=== PATIENT | male | born 1960 | race Caucasian/White ===

== ENCOUNTER 2020-05-31 15:39 | Emergency (ER) | payer OTHER, BC, SELFPAY ==
[2020-05-31 15:49] VITALS: BP 140/76; PULSE 88; RESP 20; TEMP 36.6; O2SAT 100
--- NOTE | 2020-05-31 16:35 | ED.WOUNDLAC ---
HPI - Wound/Laceration General Chief Complaint: Wound/Laceration Stated Complaint: r thumb lac Time Seen by Provider: 05/31/20 16:00 Source: patient and RN notes reviewed Mode of arrival: ambulatory Limitations: no limitations History of Present Illness HPI narrative: 59-year-old male who presents to [facility] care with complaints of injury to right thumb regalado aspect in the thenar region within the past 30 minutes prior to arrival Patient has 2 cm laceration caused by handling of fillet knife. No acute bleeding noted, controlled with pressure, tetanus is up-to-date patient states within last 6 years.Patient has good circulation to the right fingers with brisk capillary refill. Onset (ago): hour(s) (11/19-) Location: other (right hand) Extremity Location: Right: hand Place: work Patient tetanus UTD: Yes Context: accidental Associated symptoms: none Treatments prior to arrival: bandage Related Data Home Medications Medication Instructions Recorded Confirmed aspirin 81 mg tablet,delayed 81 mg PO DAILY 01/07/20 05/31/20 release Allergies Allergy/AdvReac Type Severity Reaction Status Date / Time No Known Allergies Allergy Verified 05/31/20 15:52 Review of Systems Review of Systems: Narrative: CONSTITUTIONAL: Denies fever, chills, or sweats. EYES: Denies visual changes, redness, or discharge. ENT: Denies rhinorrhea, congestion, sore throat, or otalgia. CARDIOVASCULAR: Denies chest pain, palpitations, or edema. RESPIRATORY: Denies cough or dyspnea. GASTROINTESTINAL: Denies abdominal pain, nausea, vomiting, or diarrhea. GENITOURINARY: Denies dysuria or hematuria. SKIN: Denies rash or itching.2cm laceration to the regalado aspect of right hand in thenar region MUSCULOSKELETAL: Denies back pain, joint pain, or myalgia. NEUROLOGIC: Denies headache, numbness, or weakness. PSYCHIATRIC: Denies anxiety or depression. All systems reviewed & are unremarkable except as noted in HPI and below PMFSH Past Medical History Medical History (Updated 06/01/20 @ 17:09 by Chary Pat NP) Alcohol abuse Anxiety and depression Gout Hypertension Surgical History Surgical History (Updated 06/01/20 @ 17:00 by Chary Pat NP) S/P right rotator cuff repair Family History Family History Sibling Family history of migraine headaches Family history of atrial fibrillation Mother Hypertension Social History Social History Smoking status: Never smoker Alcohol intake: current Living arrangements: with family Gender identity (if verbalized by the patient): Male Comments At time of signature, agree with nursing past medical, surgical, social and family history. There is no relevant family history pertinent to the presenting complaint Exam Narrative: Exam Narrative: GENERAL: Well-appearing, well-nourished, and in no acute distress. HEAD: Normocephalic, atraumatic. EYES: PERRLA and EOMI. ENT: Nares clear, no rhinorrhea or epistaxis. Mucous membranes moist. NECK: Supple.no lymphadenopathy CHEST: Clear to auscultation. No respiratory distress. HEART: Regular rate and rhythm. No murmur heard. Normal peripheral pulses. ABDOMEN: Soft, nontender, nondistended, normal active bowel sounds. EXTREMITIES: Normal range of motion. No edema. SKIN: Warm, dry, no rash. 2cm laceration to the right regalado thenar region from injury, no acute bleeding, CSM intact to right hand NEURO: No focal deficits. Alert and oriented x3. Course Vital Signs Vital signs: Vital Signs Temperature 36.6 C 05/31/20 15:49 Pulse Rate 88 05/31/20 15:49 Respiratory Rate 05/31/20 15:49 Blood Pressure 140/76 05/31/20 15:49 Pulse Oximetry 100 05/31/20 15:49 Temperature 36.6 C 05/31/20 15:49 Pulse Rate 88 05/31/20 15:49 Respiratory Rate 05/31/20 15:49 Blood Pressure 140/76 05/31/20 15:49 Pulse Oximetry
== END 2020-05-31 16:48 | disposition home or self-care (01) ==
PROVIDERS: Emergency Provider Registered Nurse; PCP Family Medicine
DX: S61.411A Laceration without foreign body of right hand, initial encounter (principal); W26.0XXA Contact with knife, initial encounter; F41.9 Anxiety disorder, unspecified; F32.9 Major depressive disorder, single episode, unspecified; I10 Essential (primary) hypertension; M10.9 Gout, unspecified; Z79.82 Long term (current) use of aspirin
CPT/HCPCS: 12001; 99213; G0463

== ENCOUNTER 2024-09-21 15:48 | Observation (INO) | payer BC, SELFPAY ==
[2024-09-21] VITALS (24 sets, daily range): BP systolic 99–118; BP diastolic 57–90; PULSE 96–165; RESP 13–21; TEMP 36.3; O2SAT 94–100
--- NOTE | ~2024-09-21 | XR_ITS ---
EXAMINATION: XR chest 1V portable DATE: 09/21/2024 16:34 INDICATION: Shortness of breath. TECHNIQUE: A single frontal view of the chest was obtained. COMPARISON: None. FINDINGS: There is no pneumonia, pleural effusion, or pneumothorax. The heart size is normal. IMPRESSION: 1. No acute cardiopulmonary disease. Reviewed, dictated and finalized at location A. [facility]
--- NOTE | 2024-09-21 15:53 | ECG_ITS ---
Test Date: 2024-09-21 15:57:32 Measurements Intervals [place] Rate: 173 P: 0 PA: 0 QRS: 9 QRSD: 73 T: 93 QT: 237 QTc: 403 Interpretive Statements ATRIAL FIBRILLATION WITH RAPID VENTRICULAR RESPONSE CONSIDER INFERIOR INFARCT, AGE INDETERMINATE BORDERLINE ST-T WAVE ABNORMALITY- LAT/HIGH LAT LEADS BASELINE ARTIFACT- I, II, AVR, AVL, AVF ABNORMAL ECG No previous ECG available for comparison Electronically Signed On 09-21-2024 16:05:10 [employer]LECT[employer]ICAL INSPECTOR by Tacos Nguyen D.O.
--- NOTE | 2024-09-21 15:54 | ED_ITS ---
HPI - SOB/Dyspnea General Chief Complaint: Arrhythmia/Palpitations Stated Complaint: sent by PMD for Afib Time Seen by Provider: 09/21/24 15:50 Focused HPI: Patient is a 64 y/o male who presents to the ED with c/o SOB. Patient reports having increased shortness breath over the last few weeks. Worse with exertion and lying flat. He has had intermittent dry cough and postnasal drip. He went to his primary care doctor today and was found to be tachycardic and irregular on auscultation. He was then sent to the ED for further evaluation. Patient does not have any previous Hx of AFIB. Denies hx of COPD/CHF. patient denies any chest pain. He notes he has had intermittent swelling in his BLE which he had attributed to gout. Has been on Furosemide for past 1 month, which did improve the swelling. GENERAL: Well-appearing, well-nourished, and in no acute distress. HEAD: Normocephalic, atraumatic. CHEST: Clear to auscultation. ?No respiratory distress. HEART: Tachycardic with irregular rhythm. Peripheral pulses intact. NEURO: ?Alert and oriented x3. Patient screened in triage and initial orders placed.? ?Additional care and disposition to be based upon?diagnostic testing and treatment. Source: patient Mode of arrival: ambulatory Limitations: no limitations Related Data Home Medications Medication Instructions Recorded Confirmed allopurinol 300 mg tablet 300 mg PO DAILY 09/21/24 09/21/24 amlodipine 5 mg-olmesartan 40 mg 1 tablet PO DAILY 09/21/24 09/21/24 tablet furosemide 20 mg tablet 20 mg PO DAILY 09/21/24 09/21/24 Allergies Allergy/AdvReac Type Severity Reaction Status Date / Time No Known Allergies Allergy Verified 09/21/24 22:18 [facility] Family History Family History (Updated 09/21/24 @ 22:06 by Nisreen Armando RN) Father Lung cancer Mother Kidney disease Sibling Heart problem Social History Social History Smoking status: Never smoker Alcohol intake: current Drinks per week: 12 Substance use type: does not use Do You Feel Safe in your Home?: Yes Lack of Transportation: No Lack of Food: Never True Current Housing: I Have Housing Concerned About Future Housing: No Difficulty Paying Gas/Electric Bills: No Difficulty Paying for Meds: No Currently Unemployed: No Education: High School Diploma/GED Difficulty w/ Childcare or Family Care: No Spiritual care concerns: No Course Vital Signs Vital signs: Vital Signs Temperature 97.3 F L 09/21/24 16:03 Pulse Rate 165 H 09/21/24 16:03 Respiratory Rate 20 09/21/24 16:03 Blood Pressure 114/89 09/21/24 16:03 Pulse Oximetry 98 09/21/24 16:03 Oxygen Delivery Room Air 09/21/24 16:03 Temperature 97.6 F 09/22/24 07:51 Pulse Rate 86 09/22/24 07:51 Respiratory Rate 16 09/22/24 07:51 Blood Pressure 106/79 09/22/24 07:51 Pulse Oximetry 95 09/22/24 07:51 Oxygen Delivery Room Air 09/21/24 16:24 MDM - SOB/Dyspnea MDM Narrative Medical decision making narrative: MSE by GALILEO in triage. Lab Data 09/21/24 16:16 09/21/24 16:16 Labs: Lab Results 09/21/24 09/21/24 Range/Units 16:16 16:38 WBC 9.7 (4.5-10.0) K/mm3 RBC 5.32 (4.6-6.20) M/mm3 Hgb 16.0 (14.0-18.0) g/dL Hct 50.7 (42.0-52.0) % MCV 95.3 (80-100) fl MCH 30.1 (26-34) pg MCHC 31.6 L (32-36) g/dl RDW 15.6 H (11.5-14.5) % Plt Count 225 (150-375) k/mm3 MPV 11.3 H (7.4-10.4) fl Immature Gran % (Auto) 0.3 (0-0.5) % Neut % (Auto) 62.6 (45.5-73.1) % Lymph % (Auto) 24.0 (18.3-44.2) % [place] % (Auto) 10.2 H (2.6-8.5) % Eos % (Auto) 2.1 (0-4.4) % Baso % (Auto) 0.8 (0.2-1.2) % Lymph # (Auto) 2.32 (0.9-3.2) K/mm3 [place] # (Auto) 1.0 H (0.1-0.6) K/mm3 Eos # (Auto) 0.2 (0-0.3) K/mm3 Baso # (Auto) 0.1 (0.0-0.1) K/mm3 Abs Immat Gran (auto) 0.03 (0.00-0.031) K/mm3 Absolute Neuts (auto) 6.1 (1.3-6.7) K/mm3 Absolute Nucleated RBC 0.000 (0.0-0.012) K/mm3 Nucleated RBC % 0.0 (0.0-0.2) % PT 14.2 (11.1-14.7) Seconds INR 1.1 APTT 26.8 (22.3-36.8) Seconds Sodium 141 (137-145) mmol/L Potassium 3.9 (3.4-5.0) mmol/L Chloride 105 (98-107) mmol/L Carbon Dioxide 24 (22-30) mmol/L Anion Gap 12 (4-12) mmol/L BUN 27 H (9-20) mg/dL Creatinine 1.30 (0.7-1.3) mg/dL Estim Creat Clear Calc 64 ml/min Estimated GFR 56 L (59 - ) Glucose 111 H (65-110) mg/dL Calcium 9.0 (8.4-10.2) mg/dL Magnesium 2.2 (1.6-2.3) mg/dL Total Bilirubin 1.0 (0.2-1.3) mg/dL AST 58 (17-59) U/L ALT 60 H (6-50) U/L Alkaline Phosphatase 62 (38-126) U/L Troponin I < 0.012 (0.000-0.034) ng/mL NT-Pro-B Natriuret Pep 5090 H (19.9-100) pg/mL Total Protein 8.0 (6.3-8.2) g/dL Albumin 4.4 (3.5-5.1) g/dL Influenza A (RT-PCR) Negative (Negative) Influenza B (RT-PCR) Negative (Negative) RSV (RT-PCR) Negative (Negative) SARS-CoV-2 RNA (RT-PCR) Negative (Negative) Discharge Plan Discharge Clinical Impression: Atrial fibrillation with rapid ventricular response, Dyspnea Patient Disposition: Still a Patient Condition: Stable
[2024-09-21] MEDS: SODIUM CHLORIDE 0.9% IV 1,000 ML 999 ML IV CONT ×2 (16:14→18:29)
[2024-09-21] MEDS: dilTIAZem HCl INJ 25 MG/5 ML VIAL 10 MG IV PUSH (16:14)
--- NOTE | 2024-09-21 16:16 | ED.ARRPALP ---
HPI - Arrhythmia/Palpitations General Chief Complaint: Arrhythmia/Palpitations Stated Complaint: sent by PMD for Afib Time Seen by Provider: 09/21/24 15:50 Source: patient Mode of arrival: ambulatory Limitations: no limitations History of Present Illness HPI narrative: 64-year-old male with a history of hypertension presenting with new onset AFib. States that over the last several weeks he has been increasingly short of breath especially with exertion. States that he has had intermittent lightheadedness as well as decreased appetite. He denies any chest pain. No vomiting. States he had diarrhea last week. No new leg swelling. He went to see his PCP today who found him to be in new onset AFib with RVR. No further complaints. Related Data Home Medications Medication Instructions Recorded Confirmed allopurinol 300 mg tablet 300 mg PO DAILY 09/21/24 09/21/24 amlodipine 5 mg-olmesartan 40 mg 1 tablet PO DAILY 09/21/24 09/21/24 tablet furosemide 20 mg tablet 20 mg PO DAILY 09/21/24 09/21/24 Allergies Allergy/AdvReac Type Severity Reaction Status Date / Time No Known Allergies Allergy Verified 09/21/24 22:18 Review of Systems Review of Systems: All systems reviewed & are unremarkable except as noted in HPI and below PMFSH Family History Family History (Updated 09/21/24 @ 22:06 by Nisreen Armando RN) Father Lung cancer Mother Kidney disease Sibling Heart problem Social History Social History Smoking status: Never smoker Alcohol intake: current Drinks per week: 12 Substance use type: does not use Do You Feel Safe in your Home?: Yes Lack of Transportation: No Lack of Food: Never True Current Housing: I Have Housing Concerned About Future Housing: No Difficulty Paying Gas/Electric Bills: No Difficulty Paying for Meds: No Currently Unemployed: No Education: High School Diploma/GED Difficulty w/ Childcare or Family Care: No Spiritual care concerns: No Exam Narrative: GENERAL: Well-appearing, In no acute distress, very pleasant cooperative HEAD: Normocephalic, atraumatic. EYES: PERRLA and EOMI. ENT: Mucous membranes moist. NECK: Supple. CHEST: Clear to auscultation. No respiratory distress. HEART: tachycardic, irregularly irregular ABDOMEN: Soft, nontender, nondistended EXTREMITIES: Normal range of motion. No edema. SKIN: Warm, dry, no rash. NEURO: No focal deficits. Alert and oriented x3. PSYCH: Normal mood and affect. Course Vital Signs Vital signs: Vital Signs Temperature 97.3 F L 09/21/24 16:03 Pulse Rate 165 H 09/21/24 16:03 Respiratory Rate 20 09/21/24 16:03 Blood Pressure 114/89 09/21/24 16:03 Pulse Oximetry 98 09/21/24 16:03 Oxygen Delivery Room Air 09/21/24 16:03 Temperature 97.3 F L 09/21/24 16:03 Pulse Rate 132 H 09/21/24 21:53 Respiratory Rate 14 09/21/24 21:42 Blood Pressure 116/82 09/21/24 21:53 Pulse Oximetry 97 09/21/24 21:42 Oxygen Delivery Room Air 09/21/24 16:24 MDM - Arrhythmia/Palpitations MDM Narrative Medical decision making narrative: 64-year-old male presenting with dyspnea and found to be in new onset AFib at his PCPs office. On arrival, patient is tachycardic in the 160s to 170s. Remainder of vitals within normal limits. EKG per my interpretation shows AFib with RVR. Patient received a dose of 10 mg diltiazem without significant improvement, diltiazem infusion has been ordered. Fluids are ongoing. blood work without significant abnormalities. Troponin undetectable. Patient is now on a Dilt drip with improvement in his rate down to the 100s to 110s. He requires admission for new onset AFib with RVR. spoke with the hospitalist who has accepted him for admission. Differential Diagnosis Differential diagnosis: Likely palpitations, sinus tachycardia, artial fibrillation and artial flutter Medical Records Attestation: I reviewed the patient's medical records. Lab Data Attestation: I reviewed the patient's lab results. 09/21/24 16:16 09/21/24 16:16 Labs: Lab Results 09/21/24 09/21/24 Range/Units 16:16 16:38 WBC 9.7 (4.5-10.0) K/mm3 RBC 5.32 (4.6-6.20) M/mm3 Hgb 16.0 (14.0-18.0) g/dL Hct 50.7 (42.0-52.0) % MCV 95.3 (80-100) fl MCH 30.1 (26-34) pg MCHC 31.6 L (32-36) g/dl RDW 15.6 H (11.5-14.5) % Plt Count 225 (150-375) k/mm3 MPV 11.3 H (7.4-10.4) fl Immature Gran % (Auto) 0.3 (0-0.5) % Neut % (Auto) 62.6 (45.5-73.1) % Lymph % (Auto) 24.0 (18.3-44.2) % [place] % (Auto) 10.2 H (2.6-8.5) % Eos % (Auto) 2.1 (0-4.4) % Baso % (Auto) 0.8 (0.2-1.2) % Lymph # (Auto) 2.32 (0.9-3.2) K/mm3 [place] # (Auto) 1.0 H (0.1-0.6) K/mm3 Eos # (Auto) 0.2 (0-0.3) K/mm3 Baso # (Auto) 0.1 (0.0-0.1) K/mm3 Abs Immat Gran (auto) 0.03 (0.00-0.031) K/mm3 Absolute Neuts (auto) 6.1 (1.3-6.7) K/mm3 Absolute Nucleated RBC 0.000 (0.0-0.012) K/mm3 Nucleated RBC % 0.0 (0.0-0.2) % PT 14.2 (11.1-14.7) Seconds INR 1.1 APTT 26.8 (22.3-36.8) Seconds Sodium 141 (137-145) mmol/L Potassium 3.9 (3.4-5.0) mmol/L Chloride 105 (98-107) mmol/L Carbon Dioxide 24 (22-30) mmol/L Anion Gap 12 (4-12) mmol/L BUN 27 H (9-20) mg/dL Creatinine 1.30 (0.7-1.3) mg/dL Estim Creat Clear Calc 64 ml/min Estimated GFR 56 L (59 - ) Glucose 111 H (65-110) mg/dL Calcium 9.0 (8.4-10.2) mg/dL Magnesium 2.2 (1.6-2.3) mg/dL Total Bilirubin 1.0 (0.2-1.3) mg/dL AST 58 (17-59) U/L ALT 60 H (6-50) U/L Alkaline Phosphatase 62 (38-126) U/L Troponin I < 0.012 (0.000-0.034) ng/mL NT-Pro-B Natriuret Pep 5090 H (19.9-100) pg/mL Total Protein 8.0 (6.3-8.2) g/dL Albumin 4.4 (3.5-5.1) g/dL Influenza A (RT-PCR) Negative (Negative) Influenza B (RT-PCR) Negative (Negative) RSV (RT-PCR) Negative (Negative) SARS-CoV-2 RNA (RT-PCR) Negative (Negative) Imaging Data Radiologist's impression: ITS Impressions Chest X-Ray 09/21/24 16:36 IMPRESSION: 1. No acute cardiopulmonary disease. Critical Care Time Critical Care Time Critical Care Time: Yes Total Critical Care Time: 32 Discharge Plan Discharge Clinical Impression: Atrial fibrillation with rapid ventricular response, Dyspnea Patient Disposition: Still a Patient Condition: Stable
[2024-09-21] MEDS: ASPIRIN 81 MG CHEWABLE TABLET 324 MG PO (16:19)
[2024-09-21 16:23] LABS: Basophils Absolute Auto 0.1 K/mm3 (0.0-0.1); Basophils Percent Auto 0.8 % (0.2-1.2); Eosinophils Absolute Auto 0.2 K/mm3 (0-0.3); Eosinophils Percent Auto 2.1 % (0-4.4); Hematocrit 50.7 % (42.0-52.0); Immature Granulocyte Absolute 0.03 K/mm3 (0.00-0.031); Immature Granulocyte Percent A 0.3 % (0-0.5); Lymphocytes Absolute Auto 2.32 K/mm3 (0.9-3.2); Mean Corpuscular HGB Conc 31.6 g/dl (32-36); Mean Corpuscular Hemoglobin 30.1 pg (26-34); Mean Corpuscular Volume 95.3 fl (80-100); Mean Platelet Volume 11.3 fl (7.4-10.4); Monocytes Percent Auto 10.2 % (2.6-8.5); Neutrophils Absolute Auto 6.1 K/mm3 (1.3-6.7); Neutrophils Percent Auto 62.6 % (45.5-73.1); Platelet Count Result 225 k/mm3 (150-375); Red Blood Count 5.32 M/mm3 (4.6-6.20); Red Cell Distribution Width 15.6 % (11.5-14.5); White Blood Count 9.7 K/mm3 (4.5-10.0)
[2024-09-21] MEDS: dilTIAZem 100 MG/100 ML 100 MG/100 ML BAG IV CONT (16:23)
--- NOTE | 2024-09-21 16:28 | PC.NURSE ---
Sukhi colon verified by ADITYA Leahy
[2024-09-21 16:40] LABS: INR 1.1; Prothrombin Time 14.2 Seconds (11.1-14.7)
[2024-09-21 16:41] LABS: Partial Thromboplastin Time 26.8 Seconds (22.3-36.8)
[2024-09-21 16:45] LABS: Alanine Aminotransferase 60 U/L (6-50); Albumin Level 4.4 g/dL (3.5-5.1); Alkaline Phosphatase 62 U/L (38-126); Anion Gap 12 mmol/L (4-12); Aspartate Amino Transferase 58 U/L (17-59); Blood Urea Nitrogen 27 mg/dL (9-20); Carbon Dioxide 24 mmol/L (22-30); Chloride 105 mmol/L (98-107); Estimated CRCL calculation 64 ml/min; Estimated Glomerular Filt Rate 56; Glucose 111 mg/dL (65-110); Magnesium 2.2 mg/dL (1.6-2.3); Potassium 3.9 mmol/L (3.4-5.0); Sodium 141 mmol/L (137-145)
[2024-09-21 16:57] LABS: Troponin I < 0.012 ng/mL (0.000-0.034)
--- NOTE | 2024-09-21 17:00 | PC.NURSE ---
Pt HR remaining between 137-150. MD made aware. Pt cardizem drip increased to 10mg/hr.
[2024-09-21 17:06] LABS: NT Pro B Type Natriuretic Pept 5090 pg/mL (19.9-100)
[2024-09-21 17:20] LABS: Influenza A QL RT-PCR Negative (Negative); Influenza B QL RT-PCR Negative (Negative); RSV RNA, RT-PCR Negative (Negative); SARS-CoV-2 RNA PCR Negative (Negative)
--- NOTE | 2024-09-21 20:45 | P.HP_ITS ---
H&P: HPI History of Present Illness Date/Time: 09/21/24 20:45 Chief Complaint: sob Narrative: This is a 64-year-old male with past medical history significant for gout, hypertension, patient presents to the emergency room with cold-like symptoms, fatigue, shortness of breath. Preliminary workup was significant for patient was found to atrial fibrillation with rapid ventricular response placed on a drip. Patient denies any palpitations, chest pain, leg swelling. However patient with orthopnea. Patient tested negative for influenza type A influenza type B RSV and COVID-19. EXAMINATION: XR chest 1V portable DATE: 09/21/2024 16:34 INDICATION: Shortness of breath. TECHNIQUE: A single frontal view of the chest was obtained. COMPARISON: None. FINDINGS: There is no pneumonia, pleural effusion, or pneumothorax. The heart size is normal. IMPRESSION: 1. No acute cardiopulmonary disease. Review of Systems Review of Systems: sob Constitutional: Constitutional: Denies chills, Reports fatigue, Denies fever(s), Denies night sweats and Reports weakness Eyes: Eyes: Denies change in vision ENT: Denies dysphagia and Denies odynophagia Cardiovascular: Cardiovascular: Denies chest pain Respiratory: Respiratory: Reports cough Gastrointestinal: Gastrointestinal: Denies abdominal pain, Denies heartburn, Denies diarrhea, Denies nausea and Denies vomiting Genitourinary: Genitourinary: Reports no additional male genitourinary complaints and Reports as per HPI Musculoskeletal: Musculoskeletal: Denies myalgias Integumentary/Breasts: Skin/Breast: Denies rash Neurologic: Denies focal weakness and Denies Sensory deficit (Neuro) Psychiatric: Psychiatric: Reports no additional psychiatric complaints and Reports as per HPI Endocrine: Endocrine: Denies cold intolerance, Denies heat intolerance, Denies polyphagia, Denies polydipsia, Denies polyuria and Denies palpitations Hematologic/Lymphatic: Hematologic/Lymphatic: Reports no additional hematologic/lymphatic complaints and Reports as per HPI Allergic/Immunologic: Allergic/Immunologic: Reports no additional allergic/immunologic complaints and Reports as per HPI [facility] Family History Family History (Updated 09/21/24 @ 22:06 by Nisreen Armando RN) Father Lung cancer Mother Kidney disease Sibling Heart problem Social History Social History Smoking status: Never smoker Alcohol intake: current Drinks per week: 12 Substance use type: does not use Do You Feel Safe in your Home?: Yes Lack of Transportation: No Lack of Food: Never True Current Housing: I Have Housing Concerned About Future Housing: No Difficulty Paying Gas/Electric Bills: No Difficulty Paying for Meds: No Currently Unemployed: No Education: High School Diploma/GED Difficulty w/ Childcare or Family Care: No Spiritual care concerns: No Meds Home Medications and Allergies Home Medications Medication Instructions Recorded Confirmed Type allopurinol 300 mg tablet 300 mg PO DAILY 09/21/24 09/21/24 History amlodipine 5 mg-olmesartan 40 mg 1 tablet PO DAILY 09/21/24 09/21/24 History tablet furosemide 20 mg tablet 20 mg PO DAILY 09/21/24 09/21/24 History Allergies Allergy/AdvReac Type Severity Reaction Status Date / Time No Known Allergies Allergy Verified 09/21/24 22:18 Vital Signs Vital Signs - 24 hr 09/21/24 16:03 09/21/24 16:23 09/21/24 16:24 Temperature 97.3 F L Pulse Rate 165 H 156 H Respiratory Rate 20 Blood Pressure 114/89 105/87 Pulse Oximetry 98 99 Oxygen Delivery Room Air Room Air 09/21/24 16:29 09/21/24 16:38 09/21/24 16:54 Temperature Pulse Rate 147 H 146 H 150 H Respiratory Rate 21 H 13 Blood Pressure 105/87 118/86 Pulse Oximetry 97 96 Oxygen Delivery 09/21/24 16:54 09/21/24 16:59 09/21/24 17:01 Temperature Pulse Rate 136 H 147 H 134 H Respiratory Rate 14 14 Blood Pressure 116/88 116/88 Pulse Oximetry 96 96 Oxygen Delivery 09/21/24 17:02 09/21/24 17:13 09/21/24 17:25 Temperature Pulse Rate 130 H 133 H Respiratory Rate 15 15 Blood Pressure 109/85 101/74 112/84 Pulse Oximetry 96 95 Oxygen Delivery 09/21/24 17:37 09/21/24 18:00 09/21/24 18:11 Temperature Pulse Rate 115 H 121 H 120 H Respiratory Rate 19 15 16 Blood Pressure 101/84 Pulse Oximetry 94 95 95 Oxygen Delivery 09/21/24 18:25 09/21/24 18:43 09/21/24 19:17 Temperature Pulse Rate 112 H 122 H 114 H Respiratory Rate 16 17 15 Blood Pressure 99/57 L 104/87 102/82 Pulse Oximetry 96 94 100 Oxygen Delivery 09/21/24 20:08 Temperature Pulse Rate 110 H Respiratory Rate 15 Blood Pressure 100/84 Pulse Oximetry 97 Oxygen Delivery Exam Narrative: lying in stretcher Const: General: comfortable, no acute distress, well developed, alert, awake and average body habitus Nutritional Appearance: average body habitus Orientation/consciousness: patient oriented x3 HENMT: Head: normal to inspection, normocephalic and atraumatic Ears: hearing grossly normal bilaterally Face/Nose/Sinus: normal facial exam Face and sinus: normal facial exam Eyes: General: appearance normal, both eyes and all related structures Pupils: Equal, round and reactive pupils present EOM: EOMs intact bilaterally Neck: Neck: full ROM, no lymphadenopathy and no JVD Thyroid: thyroid normal Lymphatic: no lymphadenopathy noted Resp: Effort & Inspection: normal respiratory effort and able to speak in complete sentences Auscultation: clear to auscultation bilaterally Cardio: Jugular venous distension: no JVD Rate: tachycardic Rhythm: abnormal rhythm irregularly irregular Heart sounds: S1 normal heart sound present and S2 normal heart sound present GI: GI Palp: Yes Soft to palpation and Yes No hepatosplenomegaly present : General: Yes deferred Skin: Rashes: no rashes Wounds: no wounds Neuro: General: patient oriented x3 and CN's II-XI intact bilaterally Cranial nerves: Yes CN's II-XII intact bilaterally and Yes Equal, round and reactive pupils present Cognition (Neuro): normal cognition Speech: normal speech Gait exam (Neuro): Normal gait present Motor exam (neuro): 5/5 motor strength present throughout Extrem: General: normal to inspection, full ROM, no joint enlargement and no pedal edema H&P: Results Labs Labs: Short CBC 09/21/24 Range/Units 16:16 WBC 9.7 (4.5-10.0) K/mm3 Hgb 16.0 (14.0-18.0) g/dL Hct 50.7 (42.0-52.0) % Plt Count 225 (150-375) k/mm3 BMP 09/21/24 16:16 Sodium 141 Potassium 3.9 Chloride 105 Carbon Dioxide 24 BUN 27 H Creatinine 1.30 Glucose 111 H Calcium 9.0 Cardiac Enzymes 09/21/24 Range/Units 16:16 Troponin I < 0.012 (0.000-0.034) ng/mL Liver Function 09/21/24 Range/Units 16:16 Total Bilirubin 1.0 (0.2-1.3) mg/dL AST 58 (17-59) U/L ALT 60 H (6-50) U/L Alkaline Phosphatase 62 (38-126) U/L Albumin 4.4 (3.5-5.1) g/dL Assessment and Plan Assessment and plan (1) Atrial fibrillation with rapid ventricular response: Code(s): I48.91 - Unspecified atrial fibrillation Status: Acute Assessment and Plan: Admit to IMU On diltiazem drip Cardiology consult Echocardiogram in a.m. (2) Hypertension: Code(s): I10 - Essential (primary) hypertension Status: Acute Assessment and Plan: Continue home meds (3) Acute congestive heart failure: Code(s): I50.9 - Heart failure, unspecified Status: Acute Assessment and Plan: Will obtain echocardiogram Diuresing Daily intake and output Hospitalist MIPS Advance Care Plan I have confirmed that the patient's Advanced Care Plan is present, code status is documented, or surrogate decision maker is listed in patient medical record.: Yes Medication Reconciliation I have utilized all available resources to obtain, update and review the patients current medications (includes all prescriptions, OTC, herbals, cannabis, and nutritional supplements).: Yes
--- NOTE | 2024-09-21 21:53 | PC.NURSE ---
Spoke with hospitalist -Dr. Dailey- about increasing Diltiazem drip. verbal okay
--- NOTE | 2024-09-21 22:21 | PC.NURSE ---
Patient verbalized that he has not taken any home medication for 3 days r/t feeling unwell; unable to tolerate PO intake.
[2024-09-21] MEDS: dilTIAZem 100 MG/100 ML 100 MG/100 ML BAG 15 MG IV CONT (23:57)
[2024-09-22] VITALS (28 sets, daily range): BP systolic 83–116; BP diastolic 45–86; PULSE 76–138; RESP 12–20; TEMP 36.3–36.9; O2SAT 95–99; BMI 32.0
--- NOTE | 2024-09-22 | ADMGEN ---
This patient, Erasto Rivera, was admitted to IMU Room 205-01. Patient/family oriented to hospital policies and general routines including ID bracelet, bed and alarms, visiting hours, pain management, procedures, bathroom and other care routines, personal items, smoking policy, room service/diet, and visiting hours. Information on how to activate the Rapid Response Team has been discussed. Patient/Family are encouraged to report perceived risks to care and to ask questions if they do not understand what they are told or what they should do.
--- NOTE | 2024-09-22 | ECHO_ITS ---
Patient Info Name: Erasto Rivera Age: 64 years : 1960 Gender: Male Ht: 71 in Wt: 229 lbs BSA: 2.31 m2 HR: 105 bpm BP: 108 / 74 mmHg Heart Rhythm: Atrial Fibrillation Technical Quality: Fair Exam Date: 09/22/2024 11:23 AM Exam Location: Echo Lab Patient Status: Inpatient Admit Date: 09/21/2024 Staff Ordering Physician: Villa Dailey MD Clinical Account Specialist: Mohini Butler [facility] Attending Provider: Jim Birch MD Referring Physician: Ashlie RUIZ; Exam Type: CA echo doppler color flow Study Info Indications I48.1 - Persistent atrial fibrillation Complete two-dimensional, color flow and Doppler transthoracic echocardiogram is performed. Summary 1. Left ventricular chamber dimension is mildly enlarged. 2. Left ventricular systolic function is severely reduced, estimated at 20-25%. 3. The left ventricular diastolic function is abnormal. 4. Right ventricular chamber dimension is normal. 5. Right ventricular systolic function is reduced. 6. Left atrial chamber dimension is moderately enlarged. 7. Right atrial chamber dimension is moderately enlarged. 8. There is moderate mitral valve regurgitation. 9. There is mild tricuspid valve regurgitation. Left Ventricle Left ventricular chamber dimension is mildly enlarged. Left ventricular systolic function is severely reduced, estimated at 20-25%. There is no increased left ventricular wall thickness. The left ventricular diastolic function is abnormal. Right Ventricle Right ventricular chamber dimension is normal. Right ventricular systolic function is reduced. Left Atria Left atrial chamber dimension is moderately enlarged. Right Atria Right atrial chamber dimension is moderately enlarged. Aortic Valve The aortic valve is trileaflet. There is no aortic valve stenosis. There is no aortic valve regurgitation. Pulmonic Valve The pulmonic valve is not well visualized. There is trace pulmonic regurgitation. Mitral Valve There is moderate mitral valve regurgitation. Tricuspid Valve There is mild tricuspid valve regurgitation. Pericardium/Pleural There is no pericardial effusion. Inferior Vena Cava Normal inferior vena cava with >50% collapse upon inspiration consistent with normal right atrial pressure, 3 mmHg. Aorta The aortic root size at the sinus of Valsalva is normal. Left Ventricular Outflow Tract Name Value Normal LVOT 2D LVOT Diameter 2.0 cm LVOT Doppler LVOT Peak Gradient 2 mmHg LVOT Mean Gradient 1 mmHg LVOT VTI 11 cm LVOT VTI/AV VTI Ratio 0.9 LVOT Stroke Volume 33 ml LVOT CO 2.5 l/min LVOT CI 1.1 l/min/m2 Pulmonic Valve Name Value Normal PV Doppler PV Peak Gradient 2 mmHg PV Regurgitation Doppler MD Peak End Diastolic Velocity 144 cm/s Mitral Valve Name Value Normal MV Doppler MV Decel Maries 317 cm/s2 MV PHT 73 ms MV Area (PHT) 3.0 cm2 4.0-5.0 MV Diastolic Function MV E Peak Velocity 80 cm/s MV Decel Time 252 ms Tricuspid Valve Name Value Normal TV Regurgitation Doppler TR Peak Velocity 178 cm/s TR Peak Gradient 11 mmHg Estimated PAP/RSVP RA Pressure 3 mmHg <=5 PA Systolic Pressure 16 mmHg <36 RV Systolic Pressure 16 mmHg <36 Aorta Name Value Normal Ascending Aorta Ao Root Diameter (MM) 2.8 cm Ao Root Diam Index (MM) 1.2 cm/m2 Aortic Valve Name Value Normal AV Doppler AV Peak Velocity 77 cm/s AV Peak Gradient 2 mmHg AV Mean Gradient 2 mmHg AV VTI 12 cm AV Area (Cont Eq VTI) 2.9 cm2 >=3.0 AV Area (Cont Eq Jaron) 2.7 cm2 AV Regurgitation 2D LVOT Area 3.1 cm2 Ventricles Name Value Normal LV Dimensions 2D/MM IVS Diastolic Thickness (2D) 0.8 cm 0.6-1.0 IVS Diastole Thickness (MM) 0.8 cm 0.6-1.0 LVID Diastole (2D) 6.5 cm 4.2-5.8 LVID Diastole (MM) 6.8 cm 4.2-5.8 LVIW Diastolic Thickness (2D) 0.9 cm 0.6-1.0 LVIW Diastolic Thickness (MM) 0.9 cm 0.6-1.0 LVID Systole (2D) 5.9 cm 2.5-4.0 LVID Systole (MM) 5.9 cm 2.5-4.0 LVOT Diameter 2.0 cm LV Mass (2D Cubed) 240.61 g 88.00-224.00 LV Mass Index (2D Cubed) 104 g/m2 49-115 Relative Wall Thickness (2D) 0.28 LV Mass (MM Cubed) 234.48 g 88.00-224.00 LV Mass Index (MM Cubed) 101 g/m2 49-115 Relative Wall Thickness (MM) 0.25 LV Fractional Shortening/Ejection Fraction 2D/MM LV Fractional Shortening (2D) 9 % 25-43 LV Fractional Shortening (MM) 14 % 25-43 LV EF (MM Teicholz) 28 % 52-72 LV EF (2D Teicholz) 19 % 52-72 LV Diastolic Volume (4C MOD) 161 ml LV EF (4C MOD) 37 % LV Diastolic Volume (2C MOD) 148 ml LV EF (2C MOD) 32 % LV Diastolic Volume (BP MOD) 156 ml 62-150 LV Diastolic Volume Index (BP MOD) 68 ml/m2 34-74 LV Systolic Volume (BP MOD) 103 ml 21-61 LV Systolic Volume Index (BP MOD) 45 ml/m2 11-31 LV EF (BP MOD) 34 % 52-72 LV Diastolic Length (4C) 9.1 cm LV Systolic Length (4C) 8.3 cm LV Stroke Volume (4C MOD) 59 ml Atria Name Value Normal LA Dimensions LA Dimension (MM) 4.9 cm 3.0-4.1 LA Volume (4C A-L) 98 ml LA Volume (BP A-L) 91 ml RA Dimensions RA Area (4C) 20.1 cm2 <=18.0 Report Signatures
[2024-09-22] MEDS: dilTIAZem 100 MG/100 ML 100 MG/100 ML BAG 15 MG IV CONT (06:50)
[2024-09-22] MEDS: FUROSEMIDE INJ 40 MG/4 ML VIAL IV PUSH (09:04)
[2024-09-22] MEDS: amLODIPine BESYLATE 5 MG TABLET PO (09:15)
[2024-09-22] MEDS: OLMESARTAN MEDOXOMIL 20 MG TABLET 40 MG PO (09:15)
[2024-09-22] MEDS: allopurinoL 300 MG TABLET PO (09:15)
--- NOTE | 2024-09-22 09:43 | P.CONCA_ITS ---
Assessment and Plan Assessment and plan (1) Atrial fibrillation with rapid ventricular response: Code(s): I48.91 - Unspecified atrial fibrillation Status: Acute Assessment and Plan: This is a new diagnosis for the patient. Chronicity is unknown, but has had symptoms for several weeks. Discussed the diagnosis of atrial fibrillation including pathophysiology, management strategies, risks/complications. He is currently rate controlled on diltiazem drip and a low dose of metoprolol. Will plan to attempt to restore sinus rhythm with KODY/CV tomorrow. 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 Will start Xarelto tonight * Apnea link tonight * TSH is normal (2) Hypertension: Code(s): I10 - Essential (primary) hypertension Status: Acute Assessment and Plan: Currently hypotensive. Hold amlodipine and wean diltiazem off as above. (3) Dyspnea: Code(s): R06.00 - Dyspnea, unspecified Status: Acute Assessment and Plan: Improved with heart rate control and IV furosemide. (4) Acute congestive heart failure: Code(s): I50.9 - Heart failure, unspecified Status: Acute Assessment and Plan: May be related to tachycardia. He does not appear to be significantly volume overloaded. Echo is pending. Would hold further diuresis for the time being as he is hypotensive with current SBP 83 mmHg. History of Present Illness History of Present Illness Consult date/time: 09/22/24 09:43 Requesting physician: Villa Dailey MD Consult reason: atrial fibrillation and congestive heart failure Reason For Visit: Afib RVR Narrative: Erasto Rivera is a 64 year old male with hypertension who presents to the hospital from his PCP's office because he was found to be in atrial fibrillation with rapid ventricular rate. He reports feeling short of breath and fatigued for a few weeks and states he felt like he had the flu. He denies feeling any palpitations or chest pain. He did have some orthopnea over the past few days. His heart rate was initially in the 150's - 160's and is controlled now on a diltiazem drip and a low dose of metoprolol. He is feeling better. He denies a history of any cardiac problems. He used to be a heavy daily drinker but has decreased his alcohol consumption in the past couple of months. Review of Systems Constitutional: Constitutional: Denies chills, Denies fever(s), Denies headache(s) and Denies malaise Eyes: Eyes: Denies change in vision ENT: Reports Normal hearing present, Denies dizziness, Denies headache(s) and Denies hearing loss Cardiovascular: Cardiovascular: Denies chest pain, Denies chest pain at rest, Denies chest pain with activity, Denies syncope, Denies leg edema, Denies palpitations, Denies dyspnea and Denies dyspnea on exertion Respiratory: Respiratory: Denies cough, Denies dyspnea, Denies dyspnea on exertion and Denies wheezing Gastrointestinal: Gastrointestinal: Denies abdominal pain, Denies constipation and Denies diarrhea Genitourinary: Genitourinary: Denies hematuria and Denies dysuria Musculoskeletal: Musculoskeletal: Denies myalgias, Denies arthralgias and Denies muscle cramps Integumentary/Breasts: Skin/Breast: Denies wounds Neurologic: Reports Normal hearing present, Denies confusion, Denies dizziness, Denies syncope and Denies headache(s) Psychiatric: Psychiatric: Denies anxiety, Denies confusion and Denies depression Endocrine: Endocrine: Denies cold intolerance, Denies flushing, Denies heat intolerance and Denies palpitations Hematologic/Lymphatic: Hematologic/Lymphatic: Denies easy bleeding and Denies easy bruising Allergic/Immunologic: Allergic/Immunologic: Denies wheezing PMFSH Family History Family History (Updated 09/21/24 @ 22:06 by Nisreen Armando RN) Father Lung cancer Mother Kidney disease Sibling Heart problem Social History Social History Smoking status: Never smoker Alcohol intake: current Drinks per week: 12 Substance use type: does not use Do You Feel Safe in your Home?: Yes Lack of Transportation: No Lack of Food: Never True Current Housing: I Have Housing Concerned About Future Housing: No Difficulty Paying Gas/Electric Bills: No Difficulty Paying for Meds: No Currently Unemployed: No Education: High School Diploma/GED Difficulty w/ Childcare or Family Care: No Spiritual care concerns: No Meds Home Medications and Allergies Home Medications Medication Instructions Recorded Confirmed Type allopurinol 300 mg tablet 300 mg PO DAILY 09/21/24 09/21/24 History amlodipine 5 mg-olmesartan 40 mg 1 tablet PO DAILY 09/21/24 09/21/24 History tablet furosemide 20 mg tablet 20 mg PO DAILY 09/21/24 09/21/24 History Allergies Allergy/AdvReac Type Severity Reaction Status Date / Time No Known Allergies Allergy Verified 09/21/24 22:18 Vital Signs Vital Signs - 24 hr 09/21/24 16:03 09/21/24 16:23 09/21/24 16:24 Temperature 36.3 C L Pulse Rate 165 H 156 H Respiratory Rate 20 Blood Pressure 114/89 105/87 Pulse Oximetry 98 99 Oxygen Delivery Room Air Room Air 09/21/24 16:29 09/21/24 16:38 09/21/24 16:54 Temperature Pulse Rate 147 H 146 H 150 H Respiratory Rate 21 H 13 Blood Pressure 105/87 118/86 Pulse Oximetry 97 96 Oxygen Delivery 09/21/24 16:54 09/21/24 16:59 09/21/24 17:01 Temperature Pulse Rate 136 H 147 H 134 H Respiratory Rate 14 14 Blood Pressure 116/88 116/88 Pulse Oximetry 96 96 Oxygen Delivery 09/21/24 17:02 09/21/24 17:13 09/21/24 17:25 Temperature Pulse Rate 130 H 133 H Respiratory Rate 15 15 Blood Pressure 109/85 101/74 112/84 Pulse Oximetry 96 95 Oxygen Delivery 09/21/24 17:37 09/21/24 18:00 09/21/24 18:11 Temperature Pulse Rate 115 H 121 H 120 H Respiratory Rate 19 15 16 Blood Pressure 101/84 Pulse Oximetry 94 95 95 Oxygen Delivery 09/21/24 18:25 09/21/24 18:43 09/21/24 19:17 Temperature Pulse Rate 112 H 122 H 114 H Respiratory Rate 16 17 15 Blood Pressure 99/57 L 104/87 102/82 Pulse Oximetry 96 94 100 Oxygen Delivery 09/21/24 20:08 09/21/24 21:20 09/21/24 21:42 Temperature Pulse Rate 110 H 111 H 96 Respiratory Rate 15 15 14 Blood Pressure 100/84 102/78 106/84 Pulse Oximetry 97 97 97 Oxygen Delivery 09/21/24 21:53 09/21/24 22:56 09/21/24 23:41 Temperature Pulse Rate 132 H 102 H 102 H Respiratory Rate 16 16 Blood Pressure 116/82 102/90 100/84 Pulse Oximetry 95 96 Oxygen Delivery 09/21/24 23:57 09/22/24 00:02 09/22/24 01:51 Temperature 36.9 C 36.8 C Pulse Rate 129 H 101 H 111 H Respiratory Rate 18 20 Blood Pressure 104/76 104/76 116/81 Pulse Oximetry 99 96 Oxygen Delivery 09/22/24 00:00 09/22/24 02:00 09/22/24 04:17 Temperature 36.8 C Pulse Rate 84 104 H 102 H Respiratory Rate 18 Blood Pressure 102/80 Pulse Oximetry 95 Oxygen Delivery 09/22/24 00:00 09/22/24 02:00 09/22/24 04:00 Temperature Pulse Rate 101 H 104 H 102 H Respiratory Rate Blood Pressure 104/76 116/81 102/80 Pulse Oximetry Oxygen Delivery 09/21/24 23:57 09/22/24 04:00 09/22/24 06:00 Temperature Pulse Rate 129 H 122 H 103 H Respiratory Rate Blood Pressure 104/76 Pulse Oximetry Oxygen Delivery 09/22/24 06:12 09/22/24 06:00 09/22/24 06:37 Temperature 36.8 C Pulse Rate 105 H 105 H 105 H Respiratory Rate 12 Blood Pressure 108/74 108/74 108/74 Pulse Oximetry 97 Oxygen Delivery 09/22/24 06:50 09/22/24 07:51 Temperature 36.4 C Pulse Rate 105 H 86 Respiratory Rate 16 Blood Pressure 108/74 106/79 Pulse Oximetry 95 Oxygen Delivery Exam Const: General: comfortable, no acute distress, alert and awake Orientation/consciousness: patient oriented x3 HENMT: Head: normal to inspection Eyes: General: appearance normal, both eyes and all related structures Pupils: Equal, round and reactive pupils present Neck: Neck: normal visual inspection, supple and no JVD Carotids: normal carotid upstroke Resp: Effort & Inspection: normal respiratory effort Auscultation: clear to auscultation bilaterally Cardio: Rate: regular rate Rhythm: abnormal rhythm irregularly irregular Heart sounds: S1 normal heart sound present, S2 normal heart sound present and no murmurs GI: Auscultation: normal bowel sounds Skin: General skin exam: normal color Neuro: General: patient oriented x3 Cranial nerves: Yes Equal, round and reactive pupils present Extrem: General: normal to inspection Other: no edema Psych: Appearance: grossly normal Mental Status: mental status grossly normal Results Labs and Meds 09/21/24 16:16 09/21/24 16:16 Lab results: Cardiac Enzymes 09/21/24 Range/Units 16:16 AST 58 (17-59) U/L Troponin I < 0.012 (0.000-0.034) ng/mL Coagulation 09/21/24 Range/Units 16:16 PT 14.2 (11.1-14.7) Seconds APTT 26.8 (22.3-36.8) Seconds CBC 09/21/24 Range/Units 16:16 WBC 9.7 (4.5-10.0) K/mm3 RBC 5.32 (4.6-6.20) M/mm3 Hgb 16.0 (14.0-18.0) g/dL Hct 50.7 (42.0-52.0) % Plt Count 225 (150-375) k/mm3 Lymph # (Auto) 2.32 (0.9-3.2) K/mm3 [place] # (Auto) 1.0 H (0.1-0.6) K/mm3 Eos # (Auto) 0.2 (0-0.3) K/mm3 Baso # (Auto) 0.1 (0.0-0.1) K/mm3 Comprehensive Metabolic Panel 09/21/24 Range/Units 16:16 Sodium 141 (137-145) mmol/L Potassium 3.9 (3.4-5.0) mmol/L Chloride 105 (98-107) mmol/L Carbon Dioxide 24 (22-30) mmol/L BUN 27 H (9-20) mg/dL Creatinine 1.30 (0.7-1.3) mg/dL Glucose 111 H (65-110) mg/dL Calcium 9.0 (8.4-10.2) mg/dL AST 58 (17-59) U/L ALT 60 H (6-50) U/L Alkaline Phosphatase 62 (38-126) U/L Total Protein 8.0 (6.3-8.2) g/dL Albumin 4.4 (3.5-5.1) g/dL Intake and Output 09/21/24 09/22/24 09/22/24 23:59 07:59 15:59 Intake Total 2100 500.0 120 Output Total 500 Balance 2100 0 120 Intake: IV 2100 100.0 Sodium Chloride 0.9% IV 1,000 2000 ml @ 999 mls/hr IV CONT .Q1H1M [facility] Rx#:[id number] dilTIAZem 100 MG/100 ML 100 mg 100 100.0 In 100 ml @ 15 MG/HR 15 mls/hr IV CONT .Q6H40M [facility] Rx#: [id number] Oral 400 120 Output: Urine 500 Patient Weight 09/22/24 23:59 Weight 104.1 kg
[2024-09-22] MEDS: METOPROLOL TARTRATE 6.25 MG TABLET PO (10:27)
--- NOTE | 2024-09-22 12:29 | PC.NURSE ---
Reported pt BP of 83/45 to cardiology, Manisha Spear. Order to pause cardizem drip. Pt asympotimatic.
--- NOTE | 2024-09-22 13:47 | P.PNIM_ITS ---
Progress Note: A&P Assessment and Plan (1) Atrial fibrillation with rapid ventricular response: Code(s): I48.91 - Unspecified atrial fibrillation Status: Acute Assessment and Plan: - Maintains A-Fib with rate controlled. - On diltiazem drip. - Started on PO Metoprolol. - ECHO ordered. - Cardiology consult. (2) Hypertension: Code(s): I10 - Essential (primary) hypertension Status: Acute Assessment and Plan: - BP currently trending low. - Amlodipine held with the initiation of Metoprolol. - Monitor BP closely. (3) Acute congestive heart failure: Code(s): I50.9 - Heart failure, unspecified Status: Acute Assessment and Plan: - Acute CHF, Unspecified. - Echocardiogram pending. - Continue Lasix Diuresis. - Daily intake and output and weignts. - Cardiology consulted. Time Spent With Patient Time with patient: 25 - 35 minutes Subjective Date/time seen: 09/22/24 13:47 Patient on bedrest and states still has some chest discomfort, not really SOB. Denies previous Hx of A-Fib and states has been SOB within the last couple of weeks, especially with exertion. Interval history: Patient sent to the ER from his PCP office with New Onset A-Fib and SOB. Patient also with CHF Exacerbation and driver/sales workers consulted to assist with pt management. Review of Systems Review of Systems: sob All systems reviewed & are unremarkable except as noted in HPI and below Constitutional: Constitutional: Denies chills, Reports fatigue, Denies fever(s), Denies night sweats and Reports weakness Eyes: Eyes: Denies change in vision ENT: Denies dysphagia and Denies odynophagia Cardiovascular: Cardiovascular: Denies chest pain and Denies palpitations Respiratory: Respiratory: Reports cough Gastrointestinal: Gastrointestinal: Denies abdominal pain, Denies dysphagia, Denies heartburn, Denies diarrhea, Denies nausea, Denies odynophagia and Denies vomiting Genitourinary: Genitourinary: Reports no additional male genitourinary complaints and Reports as per HPI Musculoskeletal: Musculoskeletal: Denies myalgias Integumentary/Breasts: Skin/Breast: Denies rash Neurologic: Denies focal weakness, Denies Sensory deficit (Neuro) and Reports weakness Psychiatric: Psychiatric: Reports no additional psychiatric complaints and Reports as per HPI Endocrine: Endocrine: Denies cold intolerance, Reports fatigue, Denies heat intolerance, Denies polyphagia, Denies polydipsia, Denies polyuria and Denies palpitations Hematologic/Lymphatic: Hematologic/Lymphatic: Reports no additional hematologic/lymphatic complaints and Reports as per HPI Allergic/Immunologic: Allergic/Immunologic: Reports no additional allergic/immunologic complaints and Reports as per HPI Exam Narrative: HEENT: Atraumatic, PERRL, EOM, moist mucosa. Neck: Supple. Lungs: Faint crackles to bases. Heart: Irregularly irregular rhythm, no murmurs. Abdomen: Soft, NT, non-distended, +ve bowel sounds X4 quadrants. Extremities: warm and dry. No edema. Skin: Warm and dry. No lesions noted. Neuro: Well oriented. No focal neuro deficits noted. Psych: Pleasant and co-operative. Objective Data Vital Signs Vital Signs: Vital Signs - 24 hr 09/21/24 16:03 09/21/24 16:23 09/21/24 16:24 Temperature 97.3 F L Pulse Rate 165 H 156 H Respiratory Rate 20 Blood Pressure 114/89 105/87 Pulse Oximetry 98 99 Oxygen Delivery Room Air Room Air 09/21/24 16:29 09/21/24 16:38 09/21/24 16:54 Temperature Pulse Rate 147 H 146 H 150 H Respiratory Rate 21 H 13 Blood Pressure 105/87 118/86 Pulse Oximetry 97 96 Oxygen Delivery 09/21/24 16:54 09/21/24 16:59 09/21/24 17:01 Temperature Pulse Rate 136 H 147 H 134 H Respiratory Rate 14 14 Blood Pressure 116/88 116/88 Pulse Oximetry 96 96 Oxygen Delivery 09/21/24 17:02 09/21/24 17:13 09/21/24 17:25 Temperature Pulse Rate 130 H 133 H Respiratory Rate 15 15 Blood Pressure 109/85 101/74 112/84 Pulse Oximetry 96 95 Oxygen Delivery 09/21/24 17:37 09/21/24 18:00 09/21/24 18:11 Temperature Pulse Rate 115 H 121 H 120 H Respiratory Rate 19 15 16 Blood Pressure 101/84 Pulse Oximetry 94 95 95 Oxygen Delivery 09/21/24 18:25 09/21/24 18:43 09/21/24 19:17 Temperature Pulse Rate 112 H 122 H 114 H Respiratory Rate 16 17 15 Blood Pressure 99/57 L 104/87 102/82 Pulse Oximetry 96 94 100 Oxygen Delivery 09/21/24 20:08 09/21/24 21:20 09/21/24 21:42 Temperature Pulse Rate 110 H 111 H 96 Respiratory Rate 15 15 14 Blood Pressure 100/84 102/78 106/84 Pulse Oximetry 97 97 97 Oxygen Delivery 09/21/24 21:53 09/21/24 22:56 09/21/24 23:41 Temperature Pulse Rate 132 H 102 H 102 H Respiratory Rate 16 16 Blood Pressure 116/82 102/90 100/84 Pulse Oximetry 95 96 Oxygen Delivery 09/21/24 23:57 09/22/24 00:02 09/22/24 01:51 Temperature 98.4 F 98.3 F Pulse Rate 129 H 101 H 111 H Respiratory Rate 18 20 Blood Pressure 104/76 104/76 116/81 Pulse Oximetry 99 96 Oxygen Delivery 09/22/24 00:00 09/22/24 02:00 09/22/24 04:17 Temperature 98.2 F Pulse Rate 84 104 H 102 H Respiratory Rate 18 Blood Pressure 102/80 Pulse Oximetry 95 Oxygen Delivery 09/22/24 00:00 09/22/24 02:00 09/22/24 04:00 Temperature Pulse Rate 101 H 104 H 102 H Respiratory Rate Blood Pressure 104/76 116/81 102/80 Pulse Oximetry Oxygen Delivery 09/21/24 23:57 09/22/24 04:00 09/22/24 06:00 Temperature Pulse Rate 129 H 122 H 103 H Respiratory Rate Blood Pressure 104/76 Pulse Oximetry Oxygen Delivery 09/22/24 06:12 09/22/24 06:00 09/22/24 06:37 Temperature 98.2 F Pulse Rate 105 H 105 H 105 H Respiratory Rate 12 Blood Pressure 108/74 108/74 108/74 Pulse Oximetry 97 Oxygen Delivery 09/22/24 06:50 09/22/24 07:51 09/22/24 10:27 Temperature 97.6 F Pulse Rate 105 H 86 98 Respiratory Rate 16 Blood Pressure 108/74 106/79 Pulse Oximetry 95 Oxygen Delivery 09/22/24 11:11 09/22/24 08:00 09/22/24 08:00 Temperature Pulse Rate 112 H Respiratory Rate Blood Pressure Pulse Oximetry 96 96 Oxygen Delivery Room Air Room Air 09/22/24 12:00 09/22/24 12:04 09/22/24 12:35 Temperature 97.3 F L Pulse Rate 108 H 98 Respiratory Rate 16 Blood Pressure 84/66 L 83/45 L Pulse Oximetry 96 Oxygen Delivery 09/22/24 10:00 09/22/24 12:00 09/22/24 12:00 Temperature Pulse Rate 98 89 Respiratory Rate Blood Pressure Pulse Oximetry 96 Oxygen Delivery Room Air 09/22/24 13:43 Temperature Pulse Rate Respiratory Rate Blood Pressure 90/54 L Pulse Oximetry Oxygen Delivery Intake/Output Intake/Output: Intake & Output 09/20/24 09/20/24 09/21/24 09/22/24 00:59 23:59 23:59 23:59 Intake Total 2100 1066.3 Output Total 500 Balance 2100 566.3 Meds/Results Medications: Active Medications Generic Name Dose Route Start Last Admin Trade Name Freq PRN Reason Stop Dose Admin Acetaminophen 1,000 mg 09/22/24 05:46 Acetaminophen 500 Mg Tablet PO Q6H PRN Mild Pain (1-3) or Fever Al Hydrox/Mg Hydrox/Simethicone 30 ml 09/22/24 05:46 Mag Hydrox/Al Hydrox/Simeth 30 Ml Udc PO Q6H PRN Indigestion Allopurinol 300 mg 09/22/24 09:00 09/22/24 09:15 Allopurinol 300 Mg Tablet PO 300 mg DAILY MAGDALENA Administration Amlodipine Besylate 5 mg 09/22/24 09:00 09/22/24 09:15 Amlodipine Besylate 5 Mg Tablet PO 10/22/24 08:59 5 mg DAILY MAGDALENA Administration Furosemide 40 mg 09/22/24 09:00 09/22/24 09:04 Furosemide Inj 40 Mg/4 Ml Vial IV PUSH 40 mg BID MAGDALENA Administration Diltiazem HCl 100 mg in 100 mls @ 0 mls/hr 09/21/24 23:50 09/22/24 12:35 Cardizem 100 Mg/100 Ml IV CONT 0 mg/hr .Q0M MAGDALENA 0 mls/hr Infusion Metoprolol Tartrate 25 mg 09/22/24 21:00 Metoprolol Tartrate 25 Mg Tablet PO Q12HR MAGDALENA Olmesartan 40 mg 09/22/24 09:00 09/22/24 09:15 Olmesartan Medoxomil 20 Mg Tablet PO 10/22/24 08:59 40 mg DAILY MAG[facility]ALENA Administration Ondansetron HCl 4 mg 09/22/24 05:46 Ondansetron Inj 4 Mg/2 Ml Vial IV PUSH Q6H PRN Nausea And Vomiting Perflutren Lipid Microsphere 0 ml 09/22/24 05:46 Perflutren Lipid Microspheres 1.5 Ml Vial Diluted To 10 Ml Total Volume IV PUSH 09/25/24 05:46 ONCE PRN adequate visualization Protocol Polyethylene Glycol 17 gm 09/22/24 05:46 Polyethylene Glycol 3350 17 Gm Powd.Pack PO QAM PRN Constipation Radiology Results: ITS Impressions Chest X-Ray 09/21/24 16:36 IMPRESSION: 1. No acute cardiopulmonary disease. Labs Labs: Laboratory Results - last 24 hr 09/21/24 09/21/24 09/22/24 16:16 16:38 08:32 WBC 9.7 RBC 5.32 Hgb 16.0 Hct 50.7 MCV 95.3 MCH 30.1 MCHC 31.6 L RDW 15.6 H Plt Count 225 MPV 11.3 H Immature Gran % (Auto) 0.3 Neut % (Auto) 62.6 Lymph % (Auto) 24.0 Carbon % (Auto) 10.2 H Eos % (Auto) 2.1 Baso % (Auto) 0.8 Lymph # (Auto) 2.32 Carbon # (Auto) 1.0 H Eos # (Auto) 0.2 Baso # (Auto) 0.1 Abs Immat Gran (auto) 0.03 Absolute Neuts (auto) 6.1 Absolute Nucleated RBC 0.000 Nucleated RBC % 0.0 PT 14.2 INR 1.1 APTT 26.8 Sodium 141 Potassium 3.9 Chloride 105 Carbon Dioxide 24 Anion Gap 12 BUN 27 H Creatinine 1.30 Estim Creat Clear Calc 64 Estimated GFR 56 L Glucose 111 H Calcium 9.0 Magnesium 2.2 Total Bilirubin 1.0 AST 58 ALT 60 H Alkaline Phosphatase 62 Troponin I < 0.012 NT-Pro-B Natriuret Pep 5090 H Total Protein 8.0 Albumin 4.4 TSH (Reflex) 2.880 Influenza A (RT-PCR) Negative Influenza B (RT-PCR) Negative RSV (RT-PCR) Negative SARS-CoV-2 RNA (RT-PCR) Negative Quality VTE Prophylaxis VTE prophylaxis: mechanical ordered Hospitalist MIPS Advance Care Plan I have confirmed that the patient's Advanced Care Plan is present, code status is documented, or surrogate decision maker is listed in patient medical record.: Yes Medication Reconciliation I have utilized all available resources to obtain, update and review the patients current medications (includes all prescriptions, OTC, herbals, cannabis, and nutritional supplements).: Yes
[2024-09-22] MEDS: RIVAROXABAN 20 MG TABLET PO (18:28)
[2024-09-22] MEDS: METOPROLOL TARTRATE 25 MG TABLET PO (20:45)
[2024-09-23] VITALS (23 sets, daily range): BP systolic 100–117; BP diastolic 63–89; PULSE 70–149; RESP 14–20; TEMP 36.4–37.1; O2SAT 95–100
[2024-09-23] MEDS: METOPROLOL TARTRATE 25 MG TABLET PO ×2 (08:43→20:59)
[2024-09-23] MEDS: allopurinoL 300 MG TABLET PO (08:43)
--- NOTE | 2024-09-23 09:07 | P.PNIM_ITS ---
Progress Note: A&P Assessment and Plan (1) Atrial fibrillation with rapid ventricular response: Code(s): I48.91 - Unspecified atrial fibrillation Status: Acute Assessment and Plan: - Still in A-Fib with rate uncontrolled, 130's-140's. - Diltiazem drip discontinued overnight for hypotension. - Continue PO Metoprolol if BP able to tolerate. - ECHO showing EF 20-25 %. - Cardiology following. (2) Hypertension: Code(s): I10 - Essential (primary) hypertension Status: Acute Assessment and Plan: - BP currently trending low. - Amlodipine held with the initiation of Metoprolol. - Continue to monitor BP closely. (3) Acute congestive heart failure: Code(s): I50.9 - Heart failure, unspecified Status: Acute Assessment and Plan: - Acute CHF, Unspecified. - Echocardiogram showing EF 20-25 %. - Continue Lasix Diuresis if BP able to tolerate. - Daily intake and output and weights. - Cardiology following. Plan Scheduled for KODY/Cardioversion later today. Time Spent With Patient Time with patient: 15 - 25 minutes Subjective Date/time seen: 09/23/24 09:07 Interval history: Patient admitted for New Onset A-Fib and SOB. 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 Review of Systems Review of Systems: sob All systems reviewed & are unremarkable except as noted in HPI and below Exam 2 Narrative: HEENT: Atraumatic, PERRL, EOM, moist mucosa. Neck: Supple. Lungs: Lungs clear bilaterally. Heart: Irregularly irregular rhythm, no murmurs. Abdomen: Soft, NT, non-distended, +ve bowel sounds X4 quadrants. Extremities: warm and dry. No edema. Skin: Warm and dry. No lesions noted. Neuro: Well oriented. No focal neuro deficits noted. Psych: Pleasant and co-operative. Objective Data Vital Signs Vital Signs: Vital Signs - 24 hr 09/22/24 10:27 09/22/24 11:11 09/22/24 12:00 Temperature 97.3 F L Pulse Rate 98 108 H Respiratory Rate 16 Blood Pressure 84/66 L Pulse Oximetry 96 96 Oxygen Delivery Room Air 09/22/24 12:04 09/22/24 12:35 09/22/24 10:00 Temperature Pulse Rate 98 98 Respiratory Rate Blood Pressure 83/45 L Pulse Oximetry Oxygen Delivery 09/22/24 12:00 09/22/24 12:00 09/22/24 13:43 Temperature Pulse Rate 89 Respiratory Rate Blood Pressure 90/54 L Pulse Oximetry 96 Oxygen Delivery Room Air 09/22/24 15:35 09/22/24 16:00 09/22/24 16:00 Temperature 97.5 F L Pulse Rate 122 H 122 H Respiratory Rate 16 Blood Pressure 94/77 L Pulse Oximetry 98 96 Oxygen Delivery Room Air 09/22/24 18:00 09/22/24 20:14 09/22/24 20:45 Temperature 97.8 F Pulse Rate 138 H 131 H 124 H Respiratory Rate 16 Blood Pressure 106/80 Pulse Oximetry 97 Oxygen Delivery 09/22/24 20:00 09/22/24 23:25 09/22/24 22:00 Temperature 97.8 F Pulse Rate 132 H 132 H 76 Respiratory Rate 16 Blood Pressure 114/86 Pulse Oximetry 97 Oxygen Delivery 09/23/24 00:00 09/23/24 02:00 09/23/24 04:00 Temperature Pulse Rate 124 H 123 H 132 H Respiratory Rate Blood Pressure Pulse Oximetry Oxygen Delivery 09/23/24 05:26 09/22/24 23:00 09/23/24 06:00 Temperature 98.7 F Pulse Rate 141 H 130 H Respiratory Rate 16 Blood Pressure 114/85 Pulse Oximetry 100 97 Oxygen Delivery Room Air 09/23/24 07:40 09/23/24 08:43 Temperature 97.6 F Pulse Rate 149 H 144 H Respiratory Rate 18 Blood Pressure 100/77 Pulse Oximetry 96 Oxygen Delivery Intake/Output Intake/Output: Intake & Output 09/20/24 09/21/24 09/22/24 09/23/24 23:59 23:59 23:59 23:59 Intake Total 2100 2026.3 Output Total 500 Balance 2100 1526.3 Meds/Results Medications: Active Medications Generic Name Dose Route Start Last Admin Trade Name Freq PRN Reason Stop Dose Admin Acetaminophen 1,000 mg 09/22/24 05:46 Acetaminophen 500 Mg Tablet PO Q6H PRN Mild Pain (1-3) or Fever Al Hydrox/Mg Hydrox/Simethicone 30 ml 09/22/24 05:46 Mag Hydrox/Al Hydrox/Simeth 30 Ml Udc PO Q6H PRN Indigestion Allopurinol 300 mg 09/22/24 09:00 09/23/24 08:43 Allopurinol 300 Mg Tablet PO 300 mg DAILY MAGDALENA Administration Amlodipine Besylate 5 mg 09/22/24 09:00 09/22/24 09:15 Amlodipine Besylate 5 Mg Tablet PO 10/22/24 08:59 5 mg DAILY MAGDALENA Administration Furosemide 40 mg 09/22/24 09:00 09/22/24 09:04 Furosemide Inj 40 Mg/4 Ml Vial IV PUSH 40 mg BID MAGDALENA Administration Metoprolol Tartrate 25 mg 09/22/24 21:00 09/23/24 08:43 Metoprolol Tartrate 25 Mg Tablet PO 25 mg Q12HR MAGDALENA Administration Olmesartan 40 mg 09/22/24 09:00 09/22/24 09:15 Olmesartan Medoxomil 20 Mg Tablet PO 10/22/24 08:59 40 mg DAILY MAGDALENA Administration Ondansetron HCl 4 mg 09/22/24 05:46 Ondansetron Inj 4 Mg/2 Ml Vial IV PUSH Q6H PRN Nausea And Vomiting Perflutren Lipid Microsphere 0 ml 09/22/24 05:46 Perflutren Lipid Microspheres 1.5 Ml Vial Diluted To 10 Ml Total Volume IV PUSH 09/25/24 05:46 ONCE PRN adequate visualization Protocol Polyethylene Glycol 17 gm 09/22/24 05:46 Polyethylene Glycol 3350 17 Gm Powd.Pack PO QAM PRN Constipation Rivaroxaban 20 mg 09/22/24 17:00 09/22/24 18:28 Rivaroxaban 20 Mg Tablet PO 20 mg DAILY@1700 MAGDALENA Administration Radiology Results: ITS Impressions Chest X-Ray 09/21/24 16:36 IMPRESSION: 1. No acute cardiopulmonary disease. Labs Labs: Laboratory Results - last 24 hr 09/22/24 08:32 TSH (Reflex) 2.880 Quality VTE Prophylaxis VTE prophylaxis: mechanical ordered and pharmacologic ordered Hospitalist MIPS Advance Care Plan I have confirmed that the patient's Advanced Care Plan is present, code status is documented, or surrogate decision maker is listed in patient medical record.: Yes Medication Reconciliation I have utilized all available resources to obtain, update and review the patients current medications (includes all prescriptions, OTC, herbals, cannabis, and nutritional supplements).: Yes
--- NOTE | 2024-09-23 09:57 | P.PNCA_ITS ---
Progress Note: A&P Assessment and Plan (1) Atrial fibrillation with rapid ventricular response: Code(s): I48.91 - Unspecified atrial fibrillation Status: Acute Assessment and Plan: This is a new diagnosis for the patient. Chronicity is unknown, but has had symptoms for several weeks. TSH level is normal. * Stopped Diltiazem due to reduced LVEF. Avoid Diltiazem. * Continue Metoprolol. * Planned for KODY-guided DCCV today. * [id number] is now 2 given hypertension and CHF. Will need to be on terminologist anticoagulation. Started on Xarelto 20mg once daily, continue. * Apnea link ordered (2) Acute heart failure with reduced ejection fraction (HFrEF, <= 40%): Code(s): I50.21 - Acute systolic (congestive) heart failure Status: Acute Assessment and Plan: Echo shows severely reduced LV function with EF 20-25%. Will stop Lasix for now as patient appears euvolemic. His blood pressure remains soft, so will hold off on GDMT for now. Will plan to transition Metoprolol tartrate to succinate prior to discharge. May be a tachycardia mediated cardiomyopathy, will need to re- evaluate LVEF once he has been maintained in sinus rhythm. Will need an ischemic evaluation at some point but as he is not having ischemic symptoms this does not need to be done as an inpatient (3) Hypertension: Code(s): I10 - Essential (primary) hypertension Status: Acute Assessment and Plan: Will hold antihypertensives for now as blood pressures remain soft. Subjective Date/time seen: 09/23/24 09:57 Interval history: Reason for visit: Atrial fibrillation with RVR HPI: Erasto Rivera is a 64 year old male with hypertension who presents to the hospital from his PCP's office because he was found to be in atrial fibrillation with rapid ventricular rate. He reports feeling short of breath and fatigued for a few weeks and states he felt like he had the flu. He denies feeling any palpitations or chest pain. He did have some orthopnea over the past few days. His heart rate was initially in the 150's - 160's and is controlled now on a diltiazem drip and a low dose of metoprolol. He is feeling better. He denies a history of any cardiac problems. He used to be a heavy daily drinker but has decreased his alcohol consumption in the past couple of months. Date of service 09/23: Remains in atrial fibrillation with RVR. Feeling much better now though. Scheduled for KODY-guided DCCV with Anesthesia team later today. Review of Systems Review of Systems: All systems reviewed & are unremarkable except as noted in HPI and below (HPI) Exam Const: General: comfortable and no acute distress HENMT: Mouth: Yes moist mucous membranes Eyes: General: appearance normal, both eyes and all related structures Sclera: sclerae normal Resp: Effort & Inspection: normal respiratory effort Cardio: Rate: tachycardic Rhythm: abnormal rhythm irregularly irregular Neuro: Speech: normal speech Psych: Mental Status: mental status grossly normal Affect: normal affect Objective Data Vital Signs Vital Signs: Vital Signs - 24 hr 09/22/24 10:27 09/22/24 11:11 09/22/24 12:00 Temperature 36.3 C L Pulse Rate 98 108 H Respiratory Rate 16 Blood Pressure 84/66 L Pulse Oximetry 96 96 Oxygen Delivery Room Air 09/22/24 12:04 09/22/24 12:35 09/22/24 10:00 Temperature Pulse Rate 98 98 Respiratory Rate Blood Pressure 83/45 L Pulse Oximetry Oxygen Delivery 09/22/24 12:00 09/22/24 12:00 09/22/24 13:43 Temperature Pulse Rate 89 Respiratory Rate Blood Pressure 90/54 L Pulse Oximetry 96 Oxygen Delivery Room Air 09/22/24 15:35 09/22/24 16:00 09/22/24 16:00 Temperature 36.4 C L Pulse Rate 122 H 122 H Respiratory Rate 16 Blood Pressure 94/77 L Pulse Oximetry 98 96 Oxygen Delivery Room Air 09/22/24 18:00 09/22/24 20:14 09/22/24 20:45 Temperature 36.6 C Pulse Rate 138 H 131 H 124 H Respiratory Rate 16 Blood Pressure 106/80 Pulse Oximetry 97 Oxygen Delivery 09/22/24 20:00 09/22/24 23:25 09/22/24 22:00 Temperature 36.6 C Pulse Rate 132 H 132 H 76 Respiratory Rate 16 Blood Pressure 114/86 Pulse Oximetry 97 Oxygen Delivery 09/23/24 00:00 09/23/24 02:00 09/23/24 04:00 Temperature Pulse Rate 124 H 123 H 132 H Respiratory Rate Blood Pressure Pulse Oximetry Oxygen Delivery 09/23/24 05:26 09/22/24 23:00 09/23/24 06:00 Temperature 37.1 C Pulse Rate 141 H 130 H Respiratory Rate 16 Blood Pressure 114/85 Pulse Oximetry 100 97 Oxygen Delivery Room Air 09/23/24 07:40 09/23/24 08:43 09/23/24 08:00 Temperature 36.4 C Pulse Rate 149 H 144 H 134 H Respiratory Rate 18 Blood Pressure 100/77 Pulse Oximetry 96 Oxygen Delivery 09/23/24 09:53 Temperature Pulse Rate 118 H Respiratory Rate Blood Pressure Pulse Oximetry Oxygen Delivery Intake/Output Intake/Output: Intake & Output 09/20/24 09/21/24 09/22/24 09/23/24 23:59 23:59 23:59 23:59 Intake Total 2100 2026.3 Output Total 500 Balance 2100 1526.3 Meds/Results Medications: Active Medications Generic Name Dose Route Start Last Admin Trade Name Freq PRN Reason Stop Dose Admin Acetaminophen 1,000 mg 09/22/24 05:46 Acetaminophen 500 Mg Tablet PO Q6H PRN Mild Pain (1-3) or Fever Al Hydrox/Mg Hydrox/Simethicone 30 ml 09/22/24 05:46 Mag Hydrox/Al Hydrox/Simeth 30 Ml Udc PO Q6H PRN Indigestion Allopurinol 300 mg 09/22/24 09:00 09/23/24 08:43 Allopurinol 300 Mg Tablet PO 300 mg DAILY MAGDALENA Administration Metoprolol Tartrate 25 mg 09/22/24 21:00 09/23/24 08:43 Metoprolol Tartrate 25 Mg Tablet PO 25 mg Q12HR MAGDALENA Administration Olmesartan 40 mg 09/22/24 09:00 09/22/24 09:15 Olmesartan Medoxomil 20 Mg Tablet PO 10/22/24 08:59 40 mg DAILY MAGDALENA Administration Ondansetron HCl 4 mg 09/22/24 05:46 Ondansetron Inj 4 Mg/2 Ml Vial IV PUSH Q6H PRN Nausea And Vomiting Perflutren Lipid Microsphere 0 ml 09/22/24 05:46 Perflutren Lipid Microspheres 1.5 Ml Vial Diluted To 10 Ml Total Volume IV PUSH 09/25/24 05:46 ONCE PRN adequate visualization Protocol Polyethylene Glycol 17 gm 09/22/24 05:46 Polyethylene Glycol 3350 17 Gm Powd.Pack PO QAM PRN Constipation Rivaroxaban 20 mg 09/22/24 17:00 09/22/24 18:28 Rivaroxaban 20 Mg Tablet PO 20 mg DAILY@1700 [facility] Administration Radiology Results: ITS Impressions Chest X-Ray 09/21/24 16:36 IMPRESSION: 1. No acute cardiopulmonary disease. Labs Labs: Laboratory Results - last 24 hr 09/22/24 08:32 TSH (Reflex) 2.880
--- NOTE | 2024-09-23 13:13 | PC.NURSE ---
Pt left floor for KODY/Cardioversion.
--- NOTE | 2024-09-23 13:24 | ECG_ITS ---
Test Date: 2024-09-23 13:49:02 Measurements Intervals [place] Rate: 97 P: 58 GA: 182 QRS: 31 QRSD: 89 T: 64 QT: 359 QTc: 458 Interpretive Statements SINUS RHYTHM LOW QRS VOLTAGE IN LIMB LEADS BORDERLINE ECG Compared to ECG 09/23/2024 13:20:06 Atrial fibrillation no longer present Electronically Signed On 09-23-2024 13:50:59 BRICKMASON SUPERVISOR by Tacos Nguyen D.O.
--- NOTE | 2024-09-23 13:30 | ECG_ITS ---
Test Date: 2024-09-23 13:20:06 Measurements Intervals [place] Rate: 129 P: 0 DE: 0 QRS: 39 QRSD: 98 T: 84 QT: 316 QTc: 464 Interpretive Statements ATRIAL FIBRILLATION WITH RAPID VENTRICULAR RESPONSE DELAYED PRECORDIAL R/S TRANSITION LOW QRS VOLTAGE IN LIMB LEADS BASELINE ARTIFACT- AVF ABNORMAL ECG Compared to ECG 09/21/2024 15:57:32 HEART RATE HAS DECREASED Electronically Signed On 09-23-2024 13:50:38 HEALTH CARE TECHNICIAN by Tacos Nguyen D.O.
--- NOTE | 2024-09-23 13:56 | P.PCNTEECA_ITS ---
KODY with Cardioversion Date of procedure: 09/23/24 Procedure Type: Date Of Procedure: 09/23/2024 Brief History Of Present Illness: Patient is a pleasant 64 year old male who is referred for KODY-guided DCCV for atrial fibrillation with RVR. Indications: Atrial fibrillation with RVR. Procedure In Detail: After verbal and written informed consent was obtained, the patient risks, benefits, and alternatives explained in detail. The patient agreed to proceed with the plan of care as outlined above.?See pre-sedation note for further details. Patient was monitored throughout the study with telemetry, oxygen saturation, end-tidal CO2 monitoring, blood pressure, heart rate, and respirations.?The posterior hypopharynx was then locally anesthetized using repeated administration of Hurricaine spray. After local anesthetic of the posterior hypopharynx was achieved and the oral bite block placed, sedation was administered by Anesthesia team.?After confirmation of adequate sedation, the transesophageal echocardiogram probe was advanced through the oral bite block into the posterior hypopharynx and into the esophagus easily and without complication.?Multiple, multiplanar echocardiographic images were obtained in multiple standard re-projections.?At the conclusion of the study, the transesophageal echocardiogram probe was removed easily and without complication. The patient tolerated the procedure well without difficulty.? Moderate Sedation / Anesthesia Administration: Procedure / sedation start time: 13:38 Procedure / sedation end time: 13:48 Total procedure time: 10 minutes Sedation administered by Anesthesia team. FINDINGS: LEFT ATRIUM: No thrombus LEFT ATRIAL APPENDAGE: Anatomically normal structure with prominent pectinate muscles without thrombus or vegetation identified. CARDIOVERSION: Defibrillator pads placed in an AP position. Once patient was adequately sedated, synchronized electrical cardioversion was performed with 1 shock at 250 joules, which successfully restored sinus rhythm. CONCLUSION: Successful congregation of sinus rhythm after 1 shock at 250 joules. Complications: None
--- NOTE | 2024-09-23 13:58 | P.PNAN_ITS ---
Anes - Initial Pre Proc Eval Procedure: Operation Date: 09/23/24 13:30 Proposed Procedures p Trans Esophageal Echo - Mejia Ham MD s Electrical Cardioversion - Mejia Ham MD Date/Time: 09/23/24 13:58 Surgeon: Jim Birch MD Pre Op Diagnosis: Afib RVR Patient Data Age: 64 Gender: M Height: 1.8 m Weight: 102.7 kg Last Vital Signs Temp 36.7 C 09/23/24 11:15 Pulse 132 H 09/23/24 12:00 Resp 18 09/23/24 11:15 BP 114/87 09/23/24 11:15 Pulse Ox 97 09/23/24 11:15 O2 Del Method Room Air 09/23/24 12:00 Allergies Allergy/AdvReac Type Severity Reaction Status Date / Time No Known Allergies Allergy Verified 09/21/24 22:18 Home Medications Medication Instructions Recorded Confirmed Type allopurinol 300 mg tablet 300 mg PO DAILY 09/21/24 09/21/24 History amlodipine 5 mg-olmesartan 40 mg 1 tablet PO DAILY 09/21/24 09/21/24 History tablet furosemide 20 mg tablet 20 mg PO DAILY 09/21/24 09/21/24 History Patient hx anesthesia problems: none Family hx anesthesia problems: none Results Review: All pre-operative results and documents have been reviewed as part of the pre- operative evaluation. [facility] Past Medical History Medical History (Updated 09/23/24 @ 13:58 by Momo Shepard DO) Acute heart failure with reduced ejection fraction (HFrEF, <= 40%) Atrial fibrillation with rapid ventricular response Hypertension Family History Family History (Updated 09/21/24 @ 22:06 by Nisreen Armando RN) Father Lung cancer Mother Kidney disease Sibling Heart problem Social History Social History Smoking status: Never smoker Alcohol intake: current Drinks per week: 12 Substance use type: does not use Do You Feel Safe in your Home?: Yes Lack of Transportation: No Lack of Food: Never True Current Housing: I Have Housing Concerned About Future Housing: No Difficulty Paying Gas/Electric Bills: No Difficulty Paying for Meds: No Currently Unemployed: No Education: High School Diploma/GED Difficulty w/ Childcare or Family Care: No Spiritual care concerns: No Anes - Eval Final PreProcedure Day of Procedure 09/23/24 13:58 Patient weight: obese Heart: regular rate and rhythm Lungs: clear to auscultation Airway: Mallampati scale class II Neurological: alert and oriented Last oral intake: >/= 8 hours ASA classification: IV Emergent: no Anesthetic plan: proceed Anesthesia type and monitoring: general GIVS and standard monitoring Results Review: All pre-operative results and documents have been reviewed as part of the pre-op erative evaluation. Informed Consent: The patient's anesthetic plan and its attendant risks and benefits were discussed with the patient/family/POA. Questions were solicited and answers provided to the satisfaction of the patient/family/POA.
--- NOTE | 2024-09-23 15:17 | PC.NURSE ---
pt back in room from KODY/Cardioversion at 1425.
[2024-09-23] MEDS: RIVAROXABAN 20 MG TABLET PO (17:16)
[2024-09-24] VITALS (9 sets, daily range): BP systolic 117–123; BP diastolic 77–88; PULSE 67–88; RESP 18–20; TEMP 36.4–36.6; O2SAT 95–98
[2024-09-24] MEDS: allopurinoL 300 MG TABLET PO (08:28)
[2024-09-24] MEDS: METOPROLOL SUCCINATE EXT REL 50 MG TABCR PO (08:28)
--- NOTE | 2024-09-24 09:00 | P.PNIM_ITS ---
Progress Note: A&P Assessment and Plan (1) Atrial fibrillation with rapid ventricular response: Code(s): I48.91 - Unspecified atrial fibrillation Status: Acute Assessment and Plan: - Still in A-Fib with rate uncontrolled, 130's-140's. - Diltiazem drip discontinued overnight for hypotension. - Continue PO Metoprolol if BP able to tolerate. - ECHO showing EF 20-25 %. - Cardiology following. 09/23 tomi with cardioversion, now a over controlled (2) Hypertension: Code(s): I10 - Essential (primary) hypertension Status: Acute Assessment and Plan: - BP currently trending low. - Amlodipine held with the initiation of Metoprolol. - Continue to monitor BP closely. (3) Acute congestive heart failure: Code(s): I50.9 - Heart failure, unspecified Status: Deleted Assessment and Plan: - Acute CHF, Unspecified. - Echocardiogram showing EF 20-25 %. - Continue Lasix Diuresis if BP able to tolerate. - Daily intake and output and weights. - Cardiology following. (4) Acute heart failure with reduced ejection fraction (HFrEF, <= 40%): Code(s): I50.21 - Acute systolic (congestive) heart failure Status: Acute Plan OTMI/Cardioversion later AFib with rate control. Subjective Date/time seen: 09/24/24 09:00 Interval history: Reason for visit: Atrial fibrillation with RVR HPI: Erasto Rivera is a 64 year old male with hypertension who presents to the hospital from his PCP's office because he was found to be in atrial fibrillation with rapid ventricular rate. He reports feeling short of breath and fatigued for a few weeks and states he felt like he had the flu. He denies feeling any palpitations or chest pain. He did have some orthopnea over the past few days. His heart rate was initially in the 150's - 160's and is controlled now on a diltiazem drip and a low dose of metoprolol. He is feeling better. He denies a history of any cardiac problems. He used to be a heavy daily drinker but has decreased his alcohol consumption in the past couple of months. 09/23 TOMI-guided DCCV with Anesthesia team 09/24: Remains in atrial fibrillation rate controlled Feeling much better now though. Review of Systems Review of Systems: sob All systems reviewed & are unremarkable except as noted in HPI and below Constitutional: Constitutional: Denies chills, Reports fatigue, Denies fever(s), Denies night sweats and Reports weakness Eyes: Eyes: Denies change in vision ENT: Denies dysphagia and Denies odynophagia Cardiovascular: Cardiovascular: Denies chest pain and Denies palpitations Respiratory: Respiratory: Reports cough Gastrointestinal: Gastrointestinal: Denies abdominal pain, Denies dysphagia, Denies heartburn, Denies diarrhea, Denies nausea, Denies odynophagia and Denies vomiting Genitourinary: Genitourinary: Reports no additional male genitourinary complaints and Reports as per HPI Musculoskeletal: Musculoskeletal: Denies myalgias Integumentary/Breasts: Skin/Breast: Denies rash Neurologic: Denies focal weakness, Denies Sensory deficit (Neuro) and Reports weakness Psychiatric: Psychiatric: Reports no additional psychiatric complaints and Reports as per HPI Endocrine: Endocrine: Denies cold intolerance, Reports fatigue, Denies heat intolerance, Denies polyphagia, Denies polydipsia, Denies polyuria and Denies palpitations Hematologic/Lymphatic: Hematologic/Lymphatic: Reports no additional hematologic/lymphatic complaints and Reports as per HPI Allergic/Immunologic: Allergic/Immunologic: Reports no additional allergic/immunologic complaints and Reports as per HPI Exam Narrative: HEENT: Atraumatic, PERRL, EOM, moist mucosa. Neck: Supple. Lungs: Lungs clear bilaterally. Heart: Irregularly irregular rhythm, no murmurs. Abdomen: Soft, NT, non-distended, +ve bowel sounds X4 quadrants. Extremities: warm and dry. No edema. Skin: Warm and dry. No lesions noted. Neuro: Well oriented. No focal neuro deficits noted. Psych: Pleasant and co-operative. Const: General: comfortable, no acute distress, well developed, alert, awake and average body habitus Nutritional Appearance: average body habitus Orientation/consciousness: patient oriented x3 HENMT: Head: normal to inspection, normocephalic and atraumatic Ears: he aring grossly normal bilaterally Face/Nose/Sinus: normal facial exam Face and sinus: normal facial exam Eyes: General: appearance normal, both eyes and all related structures Pupils: Equal, round and reactive pupils present EOM: EOMs intact bilaterally Neck: Neck: full ROM, no lymphadenopathy and no JVD Thyroid: thyroid normal Lymphatic: no lymphadenopathy noted Resp: Effort & Inspection: normal respiratory effort and able to speak in complete sentences Auscultation: clear to auscultation bilaterally Cardio: Jugular venous distension: no JVD Rate: regular rate and tachycardic Rhythm: regular rhythm and abnormal rhythm irregularly irregular Heart sounds: S1 normal heart sound present and S2 normal heart sound present : General: Yes deferred Skin: Rashes: no rashes Wounds: no wounds Neuro: General: patient oriented x3 and CN's II-XI intact bilaterally Cranial nerves: Yes CN's II-XII intact bilaterally and Yes Equal, round and reactive pupils present Cognition (Neuro): normal cognition Speech: normal speech Gait exam (Neuro): Normal gait present Motor exam (neuro): 5/5 motor strength present throughout Sensory Exam: No Sensory deficit (Neuro) Extrem: General: normal to inspection, full ROM, no joint enlargement and no pedal edema Objective Data Vital Signs Vital Signs: Vital Signs - 24 hr 09/23/24 09:53 09/23/24 10:21 09/23/24 11:15 Temperature 98.0 F Pulse Rate 118 H 131 H Respiratory Rate 18 Blood Pressure 104/88 114/87 Pulse Oximetry 97 Oxygen Delivery Oxygen Flow Rate 09/23/24 12:00 09/23/24 12:00 09/23/24 13:55 Temperature Pulse Rate 132 H 91 Respiratory Rate 16 Blood Pressure 113/89 Pulse Oximetry 97 Oxygen Delivery Room Air Nasal Cannula Oxygen Flow Rate 2 09/23/24 14:10 09/23/24 15:07 09/23/24 16:00 Temperature 97.6 F Pulse Rate 83 95 Respiratory Rate 14 20 Blood Pressure 110/87 113/85 Pulse Oximetry 100 98 Oxygen Delivery Room Air Room Air Oxygen Flow Rate 09/23/24 14:15 09/23/24 16:00 09/23/24 17:54 Temperature Pulse Rate 94 94 88 Respiratory Rate Blood Pressure Pulse Oximetry Oxygen Delivery Oxygen Flow Rate 09/23/24 20:06 09/23/24 20:59 09/23/24 20:00 Temperature 97.6 F Pulse Rate 91 88 Respiratory Rate 20 Blood Pressure 117/77 Pulse Oximetry 96 Oxygen Delivery Room Air Oxygen Flow Rate 09/23/24 23:36 09/24/24 00:00 09/23/24 20:00 Temperature 97.8 F Pulse Rate 71 76 Respiratory Rate 20 Blood Pressure 103/63 Pulse Oximetry 95 Oxygen Delivery Room Air Oxygen Flow Rate 09/23/24 22:00 09/24/24 00:00 09/24/24 02:00 Temperature Pulse Rate 70 69 76 Respiratory Rate Blood Pressure Pulse Oximetry Oxygen Delivery Oxygen Flow Rate 09/24/24 03:21 09/24/24 03:52 09/24/24 04:00 Temperature 97.8 F Pulse Rate 83 84 Respiratory Rate 20 Blood Pressure 123/77 Pulse Oximetry 95 Oxygen Delivery Room Air Oxygen Flow Rate 09/24/24 06:00 09/24/24 08:00 09/24/24 08:28 Temperature 97.8 F Pulse Rate 82 86 87 Respiratory Rate 18 Blood Pressure 117/80 Pulse Oximetry 97 Oxygen Delivery Oxygen Flow Rate Intake/Output Intake/Output: Intake & Output 09/21/24 09/22/24 09/23/24 09/24/24 23:59 23:59 23:59 23:59 Intake Total 2100 2026.3 240 550 Output Total 500 Balance 2100 1526.3 240 550 Meds/Results Medications: Active Medications Generic Name Dose Route Start Last Admin Trade Name Freq PRN Reason Stop Dose Admin Acetaminophen 1,000 mg 09/22/24 05:46 Acetaminophen 500 Mg Tablet PO Q6H PRN Mild Pain (1-3) or Fever Al Hydrox/Mg Hydrox/Simethicone 30 ml 09/22/24 05:46 Mag Hydrox/Al Hydrox/Simeth 30 Ml Udc PO Q6H PRN Indigestion Allopurinol 300 mg 09/22/24 09:00 09/24/24 08:28 Allopurinol 300 Mg Tablet PO 300 mg DAILY MAGDALENA Administration Metoprolol Succinate 50 mg 09/24/24 09:00 09/24/24 08:28 Metoprolol Succinate Ext Rel 50 Mg Tabcr PO 50 mg QAM MAGDALENA Administration Olmesartan 40 mg 09/22/24 09:00 09/22/24 09:15 Olmesartan Medoxomil 20 Mg Tablet PO 10/22/24 08:59 40 mg DAILY MAGDALENA Administration Ondansetron HCl 4 mg 09/22/24 05:46 Ondansetron Inj 4 Mg/2 Ml Vial IV PUSH Q6H PRN Nausea And Vomiting Perflutren Lipid Microsphere 0 ml 09/22/24 05:46 Perflutren Lipid Microspheres 1.5 Ml Vial Diluted To 10 Ml Total Volume IV PUSH 09/25/24 05:46 ONCE PRN adequate visualization Protocol Polyethylene Glycol 17 gm 09/22/24 05:46 Polyethylene Glycol 3350 17 Gm Powd.Pack PO QAM PRN Constipation Rivaroxaban 20 mg 09/22/24 17:00 09/23/24 17:16 Rivaroxaban 20 Mg Tablet PO 20 mg DAILY@1700 MAGDALENA Administration Radiology Results: ITS Impressions Chest X-Ray 09/21/24 16:36 IMPRESSION: 1. No acute cardiopulmonary disease. Quality VTE Prophylaxis VTE prophylaxis: mechanical ordered and pharmacologic ordered
--- NOTE | 2024-09-24 11:00 | P.PNCA_ITS ---
Progress Note: A&P Assessment and Plan (1) Atrial fibrillation with rapid ventricular response: Code(s): I48.91 - Unspecified atrial fibrillation Status: Acute Assessment and Plan: This is a new diagnosis for the patient. Chronicity is unknown, but has had symptoms for several weeks. TSH level is normal. * Stopped Diltiazem due to reduced LVEF. Avoid Diltiazem. * Continue Metoprolol. * s/p KODY guided DCCV. Remains in sinus rhythm * [id number] is now 2 given hypertension and CHF. Will need to be on [facility] anticoagulation. Started on Xarelto 20mg once daily, continue. * AHI 11. Will need outpatient sleep study * OK for discharge today from a cardiac perspective. (2) Acute heart failure with reduced ejection fraction (HFrEF, <= 40%): Code(s): I50.21 - Acute systolic (congestive) heart failure Status: Acute Assessment and Plan: Echo shows severely reduced LV function with EF 20-25%. Perhaps a tachycardia mediated cardiomyopathy, will need to re-evaluate LVEF once he has been maintained in sinus rhythm. Will need an ischemic evaluation at some point but as he is not having ischemic symptoms this does not need to be done as an inpatient. * Continue ToprolXL * Blood pressure has improved, will start low dose Entresto * Further GDMT optimization can be done as an outpatient * Will need BMP in one week (3) Hypertension: Code(s): I10 - Essential (primary) hypertension Status: Acute Assessment and Plan: At goal. Subjective Date/time seen: 09/24/24 11:00 Interval history: Reason for visit: Atrial fibrillation with RVR HPI: Erasto Rivera is a 64 year old male with hypertension who presents to the hospital from his PCP's office because he was found to be in atrial fibrillation with rapid ventricular rate. He reports feeling short of breath and fatigued for a few weeks and states he felt like he had the flu. He denies feeling any palpitations or chest pain. He did have some orthopnea over the past few days. His heart rate was initially in the 150's - 160's and is controlled now on a diltiazem drip and a low dose of metoprolol. He is feeling better. He denies a history of any cardiac problems. He used to be a heavy daily drinker but has decreased his alcohol consumption in the past couple of months. Date of service 09/23: Remains in atrial fibrillation with RVR. Feeling much better now though. Scheduled for KODY-guided DCCV with Anesthesia team later today. Date of service 09/24/2024: He feels well today and is eager to go home. Remains in sinus rhythm. Review of Systems Review of Systems: All systems reviewed & are unremarkable except as noted in HPI and below (HPI) Constitutional: Constitutional: Denies chills, Denies fever(s), Denies headache(s) and Denies malaise Eyes: Eyes: Denies change in vision ENT: Reports Normal hearing present, Denies dizziness, Denies headache(s) and Denies hearing loss Cardiovascular: Cardiovascular: Denies chest pain, Denies chest pain at rest, Denies chest pain with activity, Denies syncope, Denies leg edema, Denies palpitations, Denies dyspnea and Denies dyspnea on exertion Respiratory: Respiratory: Denies cough, Denies dyspnea, Denies dyspnea on exertion and Denies wheezing Gastrointestinal: Gastrointestinal: Denies abdominal pain, Denies constipation and Denies diarrhea Genitourinary: Genitourinary: Denies hematuria and Denies dysuria Musculoskeletal: Musculoskeletal: Denies myalgias, Denies arthralgias and Denies muscle cramps Integumentary/Breasts: Skin/Breast: Denies wounds Neurologic: Reports Normal hearing present, Denies confusion, Denies dizziness, Denies syncope and Denies headache(s) Psychiatric: Psychiatric: Denies anxiety, Denies confusion and Denies depression Endocrine: Endocrine: Denies cold intolerance, Denies flushing, Denies heat intolerance and Denies palpitations Hematologic/Lymphatic: Hematologic/Lymphatic: Denies easy bleeding and Denies easy bruising Allergic/Immunologic: Allergic/Immunologic: Denies wheezing Exam Const: General: comfortable, no acute distress, alert and awake; No confusion Orientation/consciousness: patient oriented x3 and No confusion HENMT: Head: normal to inspection Mouth: Yes moist mucous membranes Eyes: General: appearance normal, both eyes and all related structures S clera: sclerae normal Pupils: Equal, round and reactive pupils present Neck: Neck: normal visual inspection, supple and no JVD Carotids: normal carotid upstroke Resp: Effort & Inspection: normal respiratory effort Auscultation: clear to auscultation bilaterally Cardio: Rate: regular rate Rhythm: regular rhythm Heart sounds: S1 normal heart sound present, S2 normal heart sound present and no murmurs GI: Auscultation: normal bowel sounds Skin: General skin exam: normal color Neuro: General: patient oriented x3 and No confusion Cranial nerves: Yes Equal, round and reactive pupils present and Yes Normal hearing present Speech: normal speech Extrem: General: normal to inspection Other: no edema Psych: Appearance: grossly normal Mental Status: mental status grossly normal Affect: normal affect Objective Data Vital Signs Vital Signs: Vital Signs - 24 hr 09/23/24 11:15 09/23/24 12:00 09/23/24 12:00 Temperature 36.7 C Pulse Rate 131 H 132 H Respiratory Rate 18 Blood Pressure 114/87 Pulse Oximetry 97 Oxygen Delivery Room Air Oxygen Flow Rate 09/23/24 13:55 09/23/24 14:10 09/23/24 15:07 Temperature 36.4 C Pulse Rate 91 83 95 Respiratory Rate 16 14 20 Blood Pressure 113/89 110/87 113/85 Pulse Oximetry 97 100 98 Oxygen Delivery Nasal Cannula Room Air Oxygen Flow Rate 2 09/23/24 16:00 09/23/24 14:15 09/23/24 16:00 Temperature Pulse Rate 94 94 Respiratory Rate Blood Pressure Pulse Oximetry Oxygen Delivery Room Air Oxygen Flow Rate 09/23/24 17:54 09/23/24 20:06 09/23/24 20:59 Temperature 36.4 C Pulse Rate 88 91 88 Respiratory Rate 20 Blood Pressure 117/77 Pulse Oximetry 96 Oxygen Delivery Oxygen Flow Rate 09/23/24 20:00 09/23/24 23:36 09/24/24 00:00 Temperature 36.6 C Pulse Rate 71 Respiratory Rate 20 Blood Pressure 103/63 Pulse Oximetry 95 Oxygen Delivery Room Air Room Air Oxygen Flow Rate 09/23/24 20:00 09/23/24 22:00 09/24/24 00:00 Temperature Pulse Rate 76 70 69 Respiratory Rate Blood Pressure Pulse Oximetry Oxygen Delivery Oxygen Flow Rate 09/24/24 02:00 09/24/24 03:21 09/24/24 03:52 Temperature 36.6 C Pulse Rate 76 83 Respiratory Rate 20 Blood Pressure 123/77 Pulse Oximetry 95 Oxygen Delivery Room Air Oxygen Flow Rate 09/24/24 04:00 09/24/24 06:00 09/24/24 08:00 Temperature 36.6 C Pulse Rate 84 82 86 Respiratory Rate 18 Blood Pressure 117/80 Pulse Oximetry 97 Oxygen Delivery Oxygen Flow Rate 09/24/24 08:28 09/24/24 08:00 09/24/24 08:00 Temperature Pulse Rate 87 88 Respiratory Rate Blood Pressure Pulse Oximetry Oxygen Delivery Room Air Oxygen Flow Rate Intake/Output Intake/Output: Intake & Output 09/21/24 09/22/24 09/23/24 09/24/24 23:59 23:59 23:59 23:59 Intake Total 2100 2026.3 240 550 Output Total 500 Balance 2100 1526.3 240 550 Meds/Results Medications: Active Medications Generic Name Dose Route Start Last Admin Trade Name Freq PRN Reason Stop Dose Admin Acetaminophen 1,000 mg 09/22/24 05:46 Acetaminophen 500 Mg Tablet PO Q6H PRN Mild Pain (1-3) or Fever Al Hydrox/Mg Hydrox/Simethicone 30 ml 09/22/24 05:46 Mag Hydrox/Al Hydrox/Simeth 30 Ml Udc PO Q6H PRN Indigestion Allopurinol 300 mg 09/22/24 09:00 09/24/24 08:28 Allopurinol 300 Mg Tablet PO 300 mg DAILY MAGDALENA Administration Metoprolol Succinate 50 mg 09/24/24 09:00 09/24/24 08:28 Metoprolol Succinate Ext Rel 50 Mg Tabcr PO 50 mg QAM MAGDALENA Administration Olmesartan 40 mg 09/22/24 09:00 09/22/24 09:15 Olmesartan Medoxomil 20 Mg Tablet PO 10/22/24 08:59 40 mg DAILY MAGDALENA Administration Ondansetron HCl 4 mg 09/22/24 05:46 Ondansetron Inj 4 Mg/2 Ml Vial IV PUSH Q6H PRN Nausea And Vomiting Perflutren Lipid Microsphere 0 ml 09/22/24 05:46 Perflutren Lipid Microspheres 1.5 Ml Vial Diluted To 10 Ml Total Volume IV PUSH 09/25/24 05:46 ONCE PRN adequate visualization Protocol Polyethylene Glycol 17 gm 09/22/24 05:46 Polyethylene Glycol 3350 17 Gm Powd.Pack PO QAM PRN Constipation Rivaroxaban 20 mg 09/22/24 17:00 09/23/24 17:16 Rivaroxaban 20 Mg Tablet PO 20 mg DAILY@1700 MAGDALENA Administration Radiology Results: ITS Impressions Chest X-Ray 09/21/24 16:36 IMPRESSION: 1. No acute cardiopulmonary disease.
--- NOTE | 2024-09-24 12:00 | P.DS_ITS ---
DS: Admitting Diagnosis Discharge Date 09/24/2020 Admitting Diagnosis atrial fibrillation with RVR DS: Discharge Diagnosis Discharge Diagnosis (1) Atrial fibrillation with rapid ventricular response: Code(s): I48.91 - Unspecified atrial fibrillation Status: Acute Assessment and Plan: - Still in A-Fib with rate uncontrolled, 130's-140's. - Diltiazem drip discontinued overnight for hypotension. - Continue PO Metoprolol if BP able to tolerate. - ECHO showing EF 20-25 %. - Cardiology following. 09/23 tomi with cardioversion, now sinus rhythm DC on Entresto (2) Hypertension: Code(s): I10 - Essential (primary) hypertension Status: Acute Assessment and Plan: - BP currently trending low. - Amlodipine held with the initiation of Metoprolol. - Continue to monitor BP closely. (3) Acute congestive heart failure: Code(s): I50.9 - Heart failure, unspecified Status: Deleted Assessment and Plan: - Acute CHF, Unspecified. - Echocardiogram showing EF 20-25 %. - Continue Lasix Diuresis if BP able to tolerate. - Daily intake and output and weights. - Cardiology following. Plan TOMI/Cardioversion later AFib with rate control. DS: Summary Hospital Course Reason for hospitalization: AFib with RVR Hospital Course: This is a 64-year-old male with past medical history significant for gout, hypertension, patient presents to the emergency room with cold-like symptoms, fatigue, shortness of breath. Preliminary workup was significant for patient was found to atrial fibrillation with rapid ventricular response placed on a drip. Patient denies any palpitations, chest pain, leg swelling. However patient with orthopnea. Patient tested negative for influenza type A influenza type B RSV and COVID-19. Patient was admitted for AFib with RVR started on diltiazem. patient was found to be in heart failure with EF of 20-25%,in the hospital he was started Lasix, metoprolol, Xarelto. OriginallyHe had a [id number] score of 1,then progressive score of 2 due to hypertension, Per Cardiology the patient need Long-term anticoagulation. Patient was on diltiazem and it was stopped due to LVEF on Echo with EF 20-25%, patient will need to avoid diltiazem. Patient had a TOMI on 09/24/2020 for DCCV which resulted in sinus rhythm. He was also found to be apneic with recommendations for patient's labs. This morning the patient is still in sinus rhythm seen by Cardiology, is stable for discharge. Medications ordered. Status at Discharge Functional status at discharge: independent ambulation Overall status at discharge: patient is progressing back to baseline Time Spent with Patient Time attestation: Total time spent providing and/or coordinating discharge services: Time spent: Greater than 30 minutes Exam Narrative: HEENT: Atraumatic, PERRL, EOM, moist mucosa. Neck: Supple. Lungs: Lungs clear bilaterally. Heart: Irregularly irregular rhythm, no murmurs. Abdomen: Soft, NT, non-distended, +ve bowel sounds X4 quadrants. Extremities: warm and dry. No edema. Skin: Warm and dry. No lesions noted. Neuro: Well oriented. No focal neuro deficits noted. Psych: Pleasant and co-operative. Const: General: comfortable, no acute distress, well developed, alert, awake and average body habitus Nutritional Appearance: average body habitus Orientation/consciousness: patient oriented x3 HENMT: Head: normal to inspection, normocephalic and atraumatic Ears: hearing grossly normal bilaterally Face/Nose/Sinus: normal facial exam Face and sinus: normal facial exam Eyes: General: appearance normal, both eyes and all related structures Pupils: Equal, round and reactive pupils present EOM: EOMs intact bilaterally Neck: Neck: full ROM, no lymphadenopathy and no JVD Thyroid: thyroid normal Lymphatic: no lymphadenopathy noted Resp: Effort & Inspection: normal respiratory effort and able to speak in complete sentences Auscultation: clear to auscultation bilaterally Cardio: Jugular venous distension: no JVD Rate: regular rate and tachycardic Rhythm: regular rhythm and abnormal rhythm irregularly irregular Heart sounds: S1 normal heart sound present and S2 normal heart sound present : General: Yes deferred Skin: Rashes: no rashes Wounds: no wounds Neuro: General: patient oriented x3 and CN's II-XI intact bilaterally Cranial nerves: Yes CN's II-XII intact bilaterally and Yes Equal, round and reactive pupils present Cognition (Neuro): normal cognition Speech: normal speech Gait exam (Neuro): Normal gait present Motor exam (neuro): 5/5 motor strength present throughout Sensory Exam: No Sensory deficit (Neuro) Extrem: General: normal to inspection, full ROM, no joint enlargement and no pedal edema Discharge Plan Discharge Consulting providers: Manisha Wheeler Discharging Clinician: Della Ramon Anticipated Discharge Date/Time: 09/24/24 12:19 Patient Disposition: Home, Self-Care Activity: may shower Diet: heart healthy Discharge Instructions: Discharge instructions: Take medications as prescribed New medications prescribed: Entresto, metoprolol and Xarelto you have been given a 3 month prescription of these, follow-up with her automation engineering manager for refills You are activity as tolerated Monitor blood pressures Avoid social areas, you wear a mask when in social settings Encouraged to continue with yearly vaccinations Return to the emergency department if he developed sudden shortness of breath, chest pain, nausea, vomiting, upset stomach or intractable diarrhea Return to the emergency department if you develop fever greater than 101.5 Follow-up with: Your primary care physician within 1-2 weeks for post hospitalization check up follow-up with your automation engineering manager BMP in 1 week Will need outpatient sleep study Thank you for [facility] for your healthcare needs Patient Instructions: Apixaban (By mouth), Heart Failure (DC), A-fib (Atrial Fibrillation) (DC), Pain Management (DC), Low-Sodium Diet (DC) Stand Alone Forms: General Discharge Information Follow-up/Referrals: Manisha Wheeler, THEATRE INSTRUCTOR-C [Advanced Practice Nurse] - 2 Weeks Discharge Medications: New Entresto 24-26 mg Tablet 1 tablet PO Q12HR 90 Days Qty: 180 0RF metoprolol succinate 50 mg Tablet Extended Release 24 Hr 50 mg PO QAM 90 Days Qty: 90 0RF Xarelto 20 mg Tablet 20 mg PO DAILY@1700 Qty: 90 0RF Continued allopurinol 300 mg tablet 300 mg PO DAILY furosemide 20 mg tablet 20 mg PO DAILY amlodipine-olmesartan 5-40 mg tablet 1 tablet PO DAILY Other Ambulatory Orders: Basic Metabolic Panel (Routine) Timeframe: 1 Week Location: Determined by Patient Ordered By: Della Ramon Date of admission: 09/21/24 19:04 Primary Care Provider: Candace Manley Admitting Provider: Jim Birch Attending physician on admission: Jim Birch Condition: Stable Quality VTE Prophylaxis VTE prophylaxis: mechanical ordered and pharmacologic ordered Hospitalist MIPS Heart Failure (Exclusion) Patient has history of Heart Transplant or Left Ventricular Assistive Device?: No IF YES, STOP HERE Heart Failure (Qualifier) Patient has current or prior documentation of LVEF less than or equal to 40%, or mod/servere depressed LVSF?: Yes IF NO, STOP HERE If Yes, Heart Failure (Qualifier) Patient was prescribed or already taking an Angiotensin-Converting Enzyme (BAUTISTA) Inhibitor, or Antiotensin Receptor Osmar (ARB): No Patient was prescribed or already taking bisoprolol, carvedilol, or sustained release metoprolol succinate: Yes If Medications not prescribed/taking Reason patient not prescribed/taking BAUTISTA or ARB: Medical reasons: allergy, intolerance, contraindication or other ( hypotension) Reason patient not prescribed/taking bisoprolol, carvedilol, or sustained realease metoprolol succinate: Medical reasons: allergy, intolerance, contraindication or other (orders per cardiology )
== END 2024-09-24 12:51 | disposition home or self-care (01) ==
LOC: ANHED 16:54 → ANHIMU 19:48
PROVIDERS: Internal Medicine; Nurse Practitioner Adult Health; Physician Assistant; Admitting Provider Internal Medicine; Emergency Provider Emergency Medicine; PCP Family Medicine; Visit Provider Nurse Practitioner Gerontology
PROC: (CPT 93312; principal; 2024-09-23 13:30)
PROC: 5A2204Z Restoration of Cardiac Rhythm, Single (ICD-10-PCS; 2024-09-23 13:30)
DX: I48.91 Unspecified atrial fibrillation (principal); I11.0 Hypertensive heart disease with heart failure; I50.21 Acute systolic (congestive) heart failure; M10.9 Gout, unspecified; E66.9 Obesity, unspecified; Z68.31 Body mass index [BMI] 31.0-31.9, adult; Z20.822 Contact with and (suspected) exposure to COVID-19; Z79.899 Other long term (current) drug therapy
CPT/HCPCS: 36415; 71045; 80053; 83735; 83880; 84443; 84484; 85025; 85610; 85730; 87637; 92960; 93005; 93306; 93312; 93320; 93325; 94762; 96365; 96366; 99285; A9270; G0378; J1940; J2250; J7030; J7040; Q9957